=== PATIENT | female | born 1935 ===

== ENCOUNTER 2017-03-14 10:22 | Inpatient (IN) | payer MEDICARE, OTHER ==
[~2017-03-14] VITALS: Ht 163.8 cm; Wt 60.8 kg
[2017-03-14 12:44] VITALS: PULSE 90
[2017-03-14] MEDS ORDERED: Alum-Mag Hydrox-Simeth 30 mL Suspension PO PRN (12:45)
[2017-03-14] MEDS ORDERED: Ondansetron 2 mg/mL 2 mL Inj IVPUSH PRN (12:45)
[2017-03-14] MEDS ORDERED: Polyethylene Glycol (PEG) 17 Gm Powder PO PRN (12:45)
[2017-03-14 12:46] VITALS: BP 107/56; PULSE 93; RESP 18; O2SAT 93
--- NOTE | 2017-03-14 12:54 | PCM.HPMED ---
Subjective Date of Service March 14, 2017 Primary Provider: Admitting Physician: Oliver White Primary Care Physician: Mervat Attending Physician: Oliver White Chief Complaint: Fell leaving lunch 03/13 at [facility] on [facility] History of Present Illness: Pratibha 81-year-old woman who moved from [place] 2 months ago. Animated, has falls not irregularly she stumbles quite regularly and is supposed to be using using a walker but does not use it very often. There were no extra symptoms when she felt was a simple stumble and fall abdomen severe hip pain on the right and found to have a right femoral hip fracture. She was originally going to have surgery 03/12 in the evening then there was a delay because of antibodies in her blood. Then the plan was to have surgery 03/14 this morning but overnight she decompensated and became acutely hypoxemic and had altered level of consciousness at which point in time further workup was obtained and the decision not to operate this morning was made and to send her to a larger hospital with better resources in the event that her condition further deteriorated. Review of Systems: Gen.: No fevers chills weight loss weight gain Eyes: no visual disturbances or blurring vision HEENT: No nose/throat drainage, no pain in ears or throat, no hearing loss Lymph: No lymph nodes noted Cardiac: No chest pain, orthopnea, PND, palpitations , pedal edema or dyspnea on exertion Pulmonary: no cough, wheezing or bringing up of sputum GI: No anorexia nausea vomiting blood or black in the stool : no dysuria hematuria urinary frequency or decrease in urine output Musculoskeletal: Joint swelling no joint pain no new muscle aches or back pain Neuro: No syncope, seizures no loss of consciousness no new focal weakness, numbness or tingling Psychiatric: New new anxiety insomnia or depression Endocrine: No new heat or cold intolerances polyuria or polydipsia Hematology: No lymphadenopathy or easy bleeding or bruising noted skin: No new rashes, stasis dermatitis Allergies Coded Allergies: zolpidem (Verified Allergy, Unknown, Hallucinations, 03/14/17) Home Medications Alendronate Celexa 20 mg daily Levoxyl 125 g daily Pantoprazole Trazodone PMH Concurrent chronic continuous tobacco abuse, Question of mitral prolapse not supported by echo just completed Hypothyroidism Hypertension previously on Álvaro but discontinued Hx GERD Insomnia Self-reported emphysema but not on any inhalers. No known surgeries Social patient's lift her whole life in [facility] came to [facility] 12/2016 to be near her children. She has 6 children one of whom of a gunshot a large number of grandchildren. She is living at the [facility] living [facility] on [facility]. She has smoked at least a half a pack a day since she was 27 which is 54 years or 37 pack years. She enjoys at least and nightly glass of wine. Family history no known history of cancer or diabetes Exam Vital Signs BPs quite variable from 98/51-144/50, pulse 91-130, respiratory rate 10-25, O2 97% on 5 L today. Not previously on oxygen. Exam Gen.- A+ O 3 no apparent distress. Eyes- open conjunctiva clear, pupils equal nonicteric Mouth- oral mucosa moist, no exudate ENT- ears normal, nose normal Neck- supple/trach midline CVS- RRR no murmur or gallop Lungs- CTA GI- NABS/NT soft Musc- moving 4 no obvious deformity Neuro- cranial nerves II through XII intact to gross examination, nonfocal Skin- warm and dry, no rashes/lesions/wounds noted Psych- pleasant and appropriate, Lab and Diagnostics Labs Labs here CBC, CMP, total, BMP and type and cross of been ordered. NA 134, K4.8, CL 104, CO2 27, BUN 20, CR 0.9 03/14 LFTs WNL, albumin 2.8 total protein 5.4 03/14 WBC 13.6, Hg 10.8, HCT 31.6 1.6, PLT 192 03/14 Troponin 0.23 normal is up to 0.3 for this test 03/14 ABG pH 7.35, PCO2 50, PO2 60 on 5 L O2 sat was 90% at that point in time 03/14 X-Rays, CTs and MRIs There are reportedly CT of the chest rule out PE that is negative, hip and CXRs I have no results of these, the patient was sent with a CD so hopefully these are online with at least reads or films have been uploaded to the PACs system. 12-lead ECG EKG sinus tachycardia rate 108, QTC 453 ms abnormal R wave progression Q waves in inferior leads being read as old inferior infarct. No acute ST segment depressions or elevations personally reviewed by myself from 03/13/17 evaluated on admission. An additional EKG is pending. Cardiac Echo Impressions Echocardiogram EF 7075 percent, Right ventricular function is "severely impaired" right atria size normal, left atrium normal, thickening of mitral valve leaflets no mitral stenosis, tricuspid valve appears normal, pulmonic valve is normal trace pulmonic regurg, pericardial effusion, no evidence of mural thrombus, no pleural effusion, RVSP 51 mm Hg 03/14 Assessment & Plan 81-year-old female admitted 03/14 after coming to [facility] 03/12 with right hip fracture. My goal is to expedite this patient's procedure. Unless something springs up on her lab work or x-rays that is unexpected at this point in time the recommendation is to proceed to surgery without any additional testing. She may have had some cardiac issues in the past but the echocardiogram looks good other than some pulmonary hypertension, and while she has an extensive smoking history she is not on any inhalers or oxygen chronically and her oxygenation seems better than it was this morning when she got transferred here. Obviously an acute event in an otherwise elderly woman is possible but does not seem to already occurred. Recommend completing procedure performed any further complications occur. R hip fx-checking PTH, supplementing vitamin D and calcium, consult orthopedics Dr. Dago Ayala Acute respiratory failure-checking BNP, repeating chest x-ray getting films downloaded to PAC system and red. Acute metabolic encephalopathy-patient has been receiving Dilaudid, Ativan, and has been hypoxemic she sounds like she got better since this morning we will need to watch COPD/tobacco abuse-patient comes here on Zosyn/Levaquin and think this may be a bit much and going ahead and going to finish a course of Zithromax/Rocephin bronchodilators and incentive spirometry Hx HTN/?? CAD-echo does not suggest anything EKG shows evidence of inferior infarct could be lead placement nothing acute happening. Patient has been on álvaro in the past were holding for now and using when necessary hydralazine Hx GERD-PPI while she is in the hospital she has been on pantoprazole Hx insomnia-trazodone is what she uses at home we will continue this avoids zolpidem as it "makes her crazy" Prophylaxis: DVT, SCDs and anticoagulation per orthopedics, GI PPI while she is here Dispositions: Patient comes from assisted living on [facility] probably wants to return there even to SNF, she is DO NOT RESUSCITATE but understands it is suspended for surgery. VTE Mechanical Devices: Intermittant Pneumatic CD Resuscitation Status: DNR/DNI:Do Not Resuscitate/Intubate Time spent >70min Milton Weaver MD March 14, 2017 12:54
[2017-03-14] MEDS: Lactated Ringer's 1,000 ML IV SCH (12:57)
[2017-03-14 13:24] LABS: BASOPHILS % (AUTO) 0.3 % (0-3); EOSINOPHILS % (AUTO) 2.1 % (0-5); Mean Corpuscular Hemoglobin 30.8 pg (27.0-35.0); Mean Corpuscular Volume 96.8 fL (81-100); NEUTROPHILS % (AUTO) 71.7 % (40-74); Platelet Count 195 bil/L (150-400)
[2017-03-14] MEDS ORDERED: Magnesium Hydroxide 10 mL Oral Concentration PO PRN (13:40)
[2017-03-14] MEDS ORDERED: cefTRIAXone Inj 1,000 MG in Dextrose 5% Minibag Plus 50 ML IV SCH (13:40)
[2017-03-14 13:43] LABS: INR 1.06 ratio
[2017-03-14 13:51] LABS: TROPONIN T 0.032 ug/L (0.0-0.011)
[2017-03-14] MEDS: Calcium Carbonate (Oyster Shell) 500 mg Tablet PO SCH ×2 (14:30→19:54)
[2017-03-14 15:30] VITALS: PULSE 95; RESP 16; O2SAT 93
--- NOTE | 2017-03-14 16:31 | DRSVH ---
PROCEDURE: X-RAY CHEST ONE VIEW, PORTABLE ([id number]) INDICATIONS: pre-op TECHNIQUE: One view of the chest was acquired. COMPARISON: Outside Film, CT, CT ANGIO CHEST, 03/13/2017, 21:05. Outside Film, CR, XR CHEST 1VW, 02/22, 13:46. FINDINGS: Surgical changes and devices: Prior kyphoplasty within the mid thoracic spine. Right axillary surgic al clips.. Lungs and pleura: Diffuse, widespread bilateral interstitial opacities are present and there is been interval increase in patchy airspace opacity within the left lung base. Bibasilar and midlung bronch iectasis redemonstrated. No pneumothorax or large pleural effusions. Mediastinum: Mediastinal contours appear normal. Heart size is normal. Bones and chest wall: No suspicious bony lesions. Overlying soft tissues appear unremarkable. IMPRESSION: 1. Diffuse bilateral interstitial opacities likely chronic as well as bilateral bronchiectasis. Ant mmend clinical correlation to exclude superimposed acute interstitial process. 2. Increasing opacification within the left lung base suspicious for superimposed aspiration or pneum onia. Dictated by: Martínez Gutierrez [facility] Interpreted: Rodrigo Pollock MD on 03/14/2017 at 14:14 Transcribed by: KYLE on 03/14/2017 at 16:31 Approved by: Rodrigo Pollock M.D. on 03/15/2017 at 8:41
--- NOTE | 2017-03-14 17:45 | NUR ---
ADMIT Patient received from [facility]. Patient is alert and oriented but very forgetful. Per her granddaughter patient has Dementia. Per her daughter patient is alert and oriented X 3 at baseline. Per her daughter patient gets more confused at night. Morphine IV administered for complaints of pain. Patient will be started on a heart healthy diet and she will be NPO post midnight in preparation for her surgery tomorrow afternoon. Denies nausea. Received from with O2 at 5 LPM via NC. Sats are in the mid 90's on 5 L. Denies SOB. Skin tear noted on her R elbow and L arm. Cleansed with NS. Mepilex foam applied. IFC intact and draining to boni colored UO. Gregory alarm is on. Oriented to room and call light.
[2017-03-14] MEDS ORDERED: LORA10CA PO (18:31)
[2017-03-14] MEDS ORDERED: BACL10TA PO (18:31)
[2017-03-14] MEDS ORDERED: TRAZ-115 PO (18:31)
[2017-03-14] MEDS ORDERED: DEXT1DRO8 BOTH_EYES (18:31)
[2017-03-14] MEDS ORDERED: CALC-72 PO (18:31)
[2017-03-14] MEDS ORDERED: PANT20TA2 PO (18:31)
[2017-03-14] MEDS ORDERED: ALEN70TA2 PO (18:31)
[2017-03-14] MEDS ORDERED: ACET1TAB12 PO (18:31)
[2017-03-14] MEDS ORDERED: LEVO125T6 PO (18:31)
[2017-03-14] MEDS ORDERED: CITA20TA PO (18:31)
--- NOTE | 2017-03-14 18:36 | DRSVH ---
PROCEDURE: CT ANGIO CHEST PULMONARY EMBOLISM ([id number]) INDICATIONS: hypoxemia r/o pe RV strain TECHNIQUE: After the administration of intravenous contrast, 2 mm thick sections acquired from the pulmonary api dorcas to the posterior costophrenic angles. 3-dimensional maximum intensity projection (MIP) coronal a nd sagittal reformats were then acquired through the thorax. For radiation dose reduction, the follo wing was used: automated exposure control, adjustment of mA and/or kV according to patient size. COMPARISON: Outside Film, CT, CT ANGIO CHEST, 03/13/2017, 21:05. FINDINGS: Image quality: Excellent. Pulmonary arteries: Pulmonary arteries are enlarged, as before. There is presumed artifactual low den sity within the left upper lobe pulmonary artery secondary to beam hardening artifact resulting from a left-sided superior vena cava. Otherwise, no evidence of pulmonary embolus. Lungs and pleura: Trace right and small left pleural effusions are present. No pneumothoraces. Modera te patchy airspace opacity within the right upper lobe anteriorly is present, as before. Moderate air space opacity within the left lung base posteriorly is present. Moderate emphysema with apical predom inance is present. Mild patchy airspace opacity within the left upper lobe posteriorly.. Central and peripheral airways are patent. Mediastinum: Heart size is normal, without pericardial effusion. There is a 43 mm diameter lobular soft tissue density focus within the anterior mediastinum, as before. No hilar adenopathy. Thoracic aorta is normal in caliber and enhancement. Esophagus is normal in caliber, without hiatal hernia. Bones and chest wall: No suspicious bony lesions. No change in severe T12 compression fracture. Bony cement injection at T8. Moderate T8 compression, which is chronic. Ribs and thoracic spine appear o therwise intact throughout. Thyroid gland is not seen. No axillary or supraclavicular adenopathy. Abdomen: Visualized upper abdominal solid organs appear normal in the early arterial phase of enhanc ement. IMPRESSION: 1. No significant change compared to ..17 at 2100 hrs. 2. No pulmonary embolus. 3. Superior vena cava duplication. 4. Multifocal pneumonia with small left greater than right pleural effusions are unchanged. 5. 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 Dictated by: Brady Gómez M.D. on 03/14/2017 at 18:28 Approved by: Brady Gómez M.D. on 03/14/2017 at 18:35
[2017-03-14] MEDS: HYDROcodone-APAP 5-325 mg Tablet PO PRN (18:38)
[2017-03-14] MEDS: Famotidine Inj 20 MG in IV Premix 1 EACH IV SCH (19:53)
[2017-03-14 20:00] VITALS: PULSE 97
[2017-03-14 20:03] VITALS: BP 130/86; PULSE 96; RESP 19; O2SAT 95
--- NOTE | 2017-03-14 21:33 | CONS ---
[address] [address] CONSULTATION REPORT PATIENT: KRAIG KANG : 1935 MR#: [id number] ADMIT: 03/14/2017 JOB ID: [id number] DATE OF SERVICE: 03/14/2017 CHIEF COMPLAINT: Right hip pain. HISTORY OF PRESENT ILLNESS: The patient is an 81-year-old female who fell while at [facility] on [facility] on Tuesday evening, sustaining a right femoral neck fracture. She was unable to ambulate after the fall. She normally ambulates with a walker although her daughter states that she can be quite impulsive. She had immediate onset of pain and was able to ambulate after the fall. She was initially taken to [facility] and they initially planned for surgery. However, they had some difficulty due to antibodies and unable to get blood and then she had a hypoxic event and was thought to perhaps have aspirated and was transferred to [facility]. Her oxygen saturation remains somewhat low, at about 93% on 5 L, and therefore she had additional workup including a repeat CT scan to rule out PE and started on antibiotics for presumed aspiration pneumonia. PAST MEDICAL HISTORY: Significant for hypothyroid, hypertension, gastroesophageal reflux disease, insomnia, and self-reported COPD. ALLERGIES: ZOLPIDEM causes hallucinations. PHYSICAL EXAMINATION: Blood pressure 107/56, pulse rate 93, temperature 37.8, respirations 18, pulse rate 93. O2 sat 93 on 5 L. General: Alert and cooperative, in no acute distress. Somewhat confused. Right hip skin is intact. She has pain with any range of motion of the right lower extremity. Her right lower extremity is shortened and externally rotated. She is able to move her toes. Her foot is warm, pink, and well perfused. X-rays demonstrate a right displaced femoral neck fracture. ASSESSMENT: Right displaced femoral neck fracture. PLAN: We discussed treatment options with the patient as well as her daughter via telephone and I recommended a hip hemiarthroplasty as soon as possible. I had scheduled her for surgery today. However, her surgery was postponed due to needing to get the repeat CT scan and to allow time on antibiotics and hopefully improve her respiratory status. I discussed hip hemiarthroplasty with the patient's daughter. Discussed the risks, benefits, and possible complications of surgery. All questions were answered and she wished to proceed. We will plan for surgery tomorrow.
[2017-03-14 23:56] VITALS: BP 126/73; PULSE 99; RESP 20; O2SAT 96
[2017-03-15] VITALS (11 sets, daily range): BP systolic 124–171; BP diastolic 78–98; PULSE 93–113; RESP 16–22; O2SAT 91–98
[2017-03-15] MEDS: Lactated Ringer's 1,000 ML IV SCH ×2 (00:33→08:57)
[2017-03-15] MEDS: Piperacillin-Tazo 3.375 Gm Inj 3.375 GM in Dextrose 5% Minibag Plus 50 ML IV SCH ×5 (00:39→20:15)
[2017-03-15] MEDS: HYDROcodone-APAP 5-325 mg Tablet PO PRN (01:48)
--- NOTE | 2017-03-15 03:31 | NUR ---
Activity/Pain Pt bedrest all shift, reports pain 7-8/10, administered morphine IV and Pt was able to sleep. Later when asking Pt her pain, she just stared and said "I don't know, a 10 maybe." PRN vicodin given. Pt tolerated and is sleeping. Pt is alert but very forgetful. Pt is NPO for surgery with IV fluids infusing.
--- NOTE | 2017-03-15 06:41 | PCM.HPANE ---
Patient Data Surgeon Admitting Provider:Oliver White Attending Provider:Oliver White Primary Care Physician:Nopcp Other Provider: Reason for Visit Right Hip Fracture/Pna Ht/WT & BMI Height (Feet): 5 Height (Inches): 4.50 Weight (Kilograms): 62.300 Body Mass Index 23.13 Allergies Coded Allergies: zolpidem (Verified Allergy, Unknown, Hallucinations, 03/14/17) Past Anesthesia History Anesthesia History: Denies:: Abnormal Airway, Anesthesia Reactions, Difficult Intubation, Fam Anesthesia Reaction, Fam Malignant Hypertherm, Malignant Hyperthermia Diabetes History Hx Diabetes?: No MRSA MRSA: No Medications Reported Medications Acetaminophen/Codeine 300-30mg (Tylenol/Codeine #3)1 Each Tablet1 Tablet PO Q4H PRN Pain Ref 0 03/14/17 Dextran 70/Hypromellose/Pf (Artificial Tears Drops)1 Each Droperette2 Drop BOTH_ EYES q4 hours PRN dry eyes #1 BOTTLE 03/14/17 Loratadine (Claritin)10 Mg Hnankse26 Mg PO DAILY PRN allergies Ref 0 03/14/17 Baclofen 10 Mg Fmootp57 Mg PO BID PRN For Spasm Ref 0 03/14/17 Trazodone 50 Mg Cpekty13 Mg PO HS Ref 0 03/14/17 Citalopram Hydrobromide (Celexa)20 Mg Ahwqof25 Mg PO DAILY Ref 0 03/14/17 Calcium Carbonate/Vitamin D3 (Calcium 500 + Vit D 200 Tablet)1 Each Tablet1 Each PO DAILY 03/14/[address] 20 Mg Tablet.dr20 Mg PO DAILY Ref 0 03/14/17 Levothyroxine 125 Mcg Kmmtsi682 Mcg PO DAILY For Thyroid Replacement Ref 0 03/14/17 Alendronate Sodium (Fosamax)70 Mg Ovxamc97 Mg PO WEEKLY 30 Days Ref 0 03/14/17 History History of ENT Problems?: No HEENT History: Denies:: Abnormal Airway Cataracts Difficult Intubation Dysphagia Glaucoma Hearing Problem Sinus Problem TMJ Denture Type: Full- Upper Full- Lower Teeth Condition: Within Normal Limits Hx of Heart Problems?: Yes Cardiovascular History: Positive for:: Hypertension Denies:: Cardiac Surgery Chest Pain (DENIES CHEST PAIN AT THIS TIME.) Congestive Heart Failure Edema Heart Murmur Irregular Heartbeat Pacemaker Thrombophlebitis Other Cardiac History: HX: MITRAL VALVE PROPLAPSE Hx of Respiratory Problem?: Yes Respiratory History: Positive for:: Emphysema Denies:: Asthma COPD Chest Surgery Cough Dyspnea Hemoptysis Oxygen Administration Pneumonia Pulmonary Embolism Tuberculosis Use of C-PAP Machine Use of Inhalers / NEBS Hx Neurologic Problems?: No Neurological History: Positive for:: Dementia Denies:: Alzheimer's Disease CVA Dizziness Headaches Multiple Sclerosis Parkinson's Disease Peripheral Neuropathy Seizures TIA Hx of GI Problems?: Yes Gastrointestinal History: Denies:: Cirrhosis Diverticulitis Gall Bladder Disease Gastroesphageal Reflux Gastrointestinal Bleeding Heartburn Hepatitis Hiatal Hernia Liver Disease Rectal Bleeding Hx of Problems?: No Genitourinary History: Denies:: HX of Hemodialysis Kidney Stones Urinary Tract Infection HX of Peritoneal Dialysis: No Female Hx: Denies:: Currently Endometriosis Pelvic Inflammatory Problems with Breasts? Skin History: Denies:: History Skin Disorders? Pressure Ulcers Hx Musculoskeletal Problems?: No Musculoskeletal History: Positive for:: Back Injury Osteoarthritis Denies:: Degenerative Joint Fibromyalgia Joint Replacement Musculoskeletal Trauma Myasthenia Gravis Rheumatoid Arthritis Systemic Lupus Hx of Psycho/Social Problems?: Yes Psycho Social History: Positive for:: Hx Depression (ON CITALOPRAM) Denies:: Anxiety Bipolar Disorder Suicide Attempt Hx Surgeries?: Yes (R MASTECTOMY) Hx Any Other Health Problems?: Yes Other History: Positive for:: Cancer (BREAST CA) Hospitalization (FRACTURE) Thyroid Disease (HYPOTHYROID) History Blood Transfusions: Positive for:: Accept Blood Products? Denies:: Blood Transfusions Hx Diabetes: No Other Pertinent History: HX: INSOMNIA Hx Substance Use: NoHave You Smoked inLast 12 mo: YesApprox How Many Cigarettes/day: 1/2 PPD SINCE AGE 27. Stop/Bang Treated for Sleep Apnea?: No Do You Have a CPAP Machine?: No S-Snoring: Do You Snore Loudly: No T-Tired: feel tired, fatigued: No O-Obsered: Observed not breath: No P-Blood Pressure: treated: No B- Body Mass Index > 35 kg/m2: No A- Age over 50: Yes N- Neck Large Circumference: No G- Gender Male: No KRISTIE Total Score: 0 Risk Assessment Category Category 1A: Patient has history of documented sleep apnea, and HAS NOT received any narcotic, sedative or anesthesia administration during this stay. Category 1B: Patient has history of documented sleep apnea, and HAS received any narcotic , sedative or anesthesia administration during this stay Category 2: Patient has SUSPECTED Obstructive Sleep Apnea, and HAS received any narcotic , sedative or anesthesia administration during this stay. Category 3: Patient has SUSPECTED Obstructive Sleep Apnea and HAS NOT received narcotic, sedative or anesthesia administration during this stay. Category 4: Outpatient in Procedural Areas with known sleep apnea or who screen positive for High Risk via the STOP/BANG questionnaire. Exam Exam Vital Signs Vital Signs Date Time Temp Pulse Resp B/P Pulse Ox O2 Delivery O2 Flow Rate FiO2 03/15/17 05:28 36.7 95 20 131/78 93 Nasal Cannula 5.00 03/14/17 23:56 36.8 99 20 126/73 96 Nasal Cannula 5.00 General Appearance: Alert, Cooperative, Moderate Distress (Right hip pain) HEENT/AIRWAY: MP 2, Neck Movement (FROM), Mouth Opening (3 FBMO) Lungs: Diminished, Coarse Heart: Regular Rate/Rhythm Meds/Labs/Diagnostics Admission Meds Current Medications Lactated Ringer's 1,000 ml @ 100 mls/hr Q10H IV Last administered on 00:33; Start 03/14/17 at 12:43 Famotidine/Sodium Chloride/Premix (Pepcid Inj/IV Premix) 50 ml @ 100 mls/hr Q12 IV Last administered on 03/14/17 19:53; Start 03/14/17 at 20:30 Lactobacillus Acidophilus 2 tablet 2 tablet PCHS PO Last administered on 18:38; Start 03/14/17 at 18:00 Ceftriaxone Sodium/Dextrose/ Water (Rocephin Inj/ D5W Minibag Plus) 50 ml @ 100 mls/hr Q24H IV Last administered on 03/14/17 15:42; Start 03/14/17 at 13: 40; Stop 03/14/17 at 16:45; Status DC Calcium Carbonate 500 mg 500 mg TID PO Last administered on 03/14/17 19:54; Start 03/14/17 at 14:30 Piperacillin Sod/ Tazobactam Sod/ Dextrose/Water (Zosyn 3.375 Gm Inj/D5W Minibag Plus) 50 ml @ 12.5 mls/hr Q8 IV Last administered on 03/15/17 00:39; Start 03/15/17 at 00:30 Labs Test 03/14/17 13:15 03/14/17 15:00 White Blood Count 11.0th/mm3 (3.8-10.1) Red Blood Count 3.44mil/mm3 (3.90-5.20) Hemoglobin 10.6g/dL (12.0-15.6) Hematocrit 33.3% (35.0-46.0) Mean Corpuscular Volume 96.8fL (81-100) Mean Corpuscular Hemoglobin 30.8pg (27.0-35.0) Mean Corpuscular Hemoglobin Concent 31.8% (32.0-37.0) Red Cell Distribution Width 13.4% (12.3-15.4) Platelet Count 195bil/L (150-400) Neutrophils (%) (Auto) 71.7% (40-74) Lymphocytes (%) (Auto) 14.7% (14-46) Monocytes (%) (Auto) 11.0% (4-12) Eosinophils (%) (Auto) 2.1% (0-5) Basophils (%) (Auto) 0.3% (0-3) Prothrombin Time 11.4sec (8.1-12.5) Prothromb Time International Ratio 1.06ratio Activated Partial Thromboplast Time 28.7sec (22.8-33.0) Sodium Level 137mEq/L (134-144) Potassium Level 4.5mEq/L (3.5-5.2) Chloride Level 104mEq/L (97-108) Carbon Dioxide Level 23mmol/L (18-29) Blood Urea Nitrogen 16mg/dL (8-27) Creatinine 0.68mg/dL (0.57-1.00) Estimat Glomerular Filtration Rate 119mL/min (>59) Glucose Level 98mg/dL (60-99) Calcium Level 8.3mg/dL (8.5-10.1) Total Bilirubin 0.5mg/dL (0.0-1.2) Aspartate Amino Transf (AST/SGOT) 17U/L (0-50) Alanine Aminotransferase (ALT/SGPT) 12U/L (0-32) Alkaline Phosphatase 54U/L (25-165) Troponin T 0.032ug/L (0.0-0.011) Pro-B-Type Natriuretic Peptide 5169pg/mL (0-738) Total Protein 5.2g/dL (6.4-8.4) Albumin 2.8g/dL (3.4-5.0) Parathyroid Hormone (Intact) 59pg/mL (15-65) Plan Impression Patient chart reviewed, patient interviewed and anesthestic plan with risks, benefits, and alternatives discussed, and informed consent obtained. NPO per Anesth. Guidelines: Yes ASA Physical Status: ASA3 Severe Disease (COPD) Anesthetic Plan: SAB (risks of spinal including bleeding, spinal cord infection , nerve damage, dysfunction, low blood pressure discussed. AQA. Consent signed by daughter.) Bene/Risks/Altern/Consents: Yes HP Complete Prior to Induction: Yes Other care tramsferred Mauro Jimenez MD March 15, 2017 06:41 Adonay Mendeita MD March 15, 2017 18:32
[2017-03-15] MEDS: Pantoprazole 40 mg ER24 Tablet PO SCH (07:30)
[2017-03-15] MEDS: Calcium Carbonate (Oyster Shell) 500 mg Tablet PO SCH ×3 (08:30→20:30)
[2017-03-15] MEDS: Polyethylene Glycol (PEG) 17 Gm Powder PO SCH (08:30)
[2017-03-15] MEDS: Famotidine Inj 20 MG in IV Premix 1 EACH IV SCH ×2 (08:56→21:30)
[2017-03-15] MEDS ORDERED: Glycopyrrolate 0.2 MG/ML 1mL Inj ONE (10:50)
[2017-03-15] MEDS ORDERED: fentaNYL-PF 50 mCg/mL 2 mL Inj ONE (10:50)
[2017-03-15] MEDS ORDERED: Propofol 10,000 mCg/mL 20 mL Inj ONE (10:50)
[2017-03-15] MEDS ORDERED: Ketamine 10 mg/mL 20 mL Inj ONE (10:50)
[2017-03-15] MEDS ORDERED: Phenylephrine/NS-PF 100 mCg/mL 5 mL Syringe IVPUSH ONE (10:50)
--- NOTE | 2017-03-15 11:30 | NUR ---
Care meeting Small care meeting happened in the room ~1130 between Louis (survey project manager of [employer]), myself, and primary nurses Shai Valle and Wendy Martinez with granddaughter and pt present. Granddaughter expressed frustration regarding her grandmas surgery getting pushed back to 1700 however right before the meeting Dr. Ayala came down and spoke with pt and granddaughter. It was relayed to the care team that Dr. Ayala would be changing her surgery time to 1500. Granddaughter also expressed frustration with the turning schedule of the pt which we discussed will happen Q2 hours to avoid skin breakdown. Also discussed pain management after surgery and possible delirium that could occur after surgery. Granddaughter states she understands as she is a RN. Care conts. HVAC MANAGER Tanya also aware of plan.
--- NOTE | 2017-03-15 13:17 | NUR ---
awaiting ortho orders post op
--- NOTE | 2017-03-15 13:22 | PCM.PNMED ---
Subjective Date of Service March 15, 2017 Subjective Pain in hip. Denies chest pain, dyspnea, nausea vomiting. Has been very confused overnight but woke up a little bit clear. Obviously has no recollection of who I am or ever meeting me prior to today. Exam Vital Signs Vital Sign - Last Date Time Temp Pulse Resp B/P Pulse Ox O2 Delivery O2 Flow Rate FiO2 03/15/17 11:48 36.4 95 16 171/83 96 Nasal Cannula 5.00 Intake and Output 03/14/17 03/14/17 03/15/17 Cumulative From/Thru 14:59 22:59 06:59 03/14/17 12:35 - 03/15/17 06:03 Intake Total 300 ml 1400 ml 1700 ml Output Total 750 ml 1350 ml 2100 ml Balance -450 ml 50 ml -400 ml Intake Oral 300 ml 200 ml 500 ml IV Total 1200 ml 1200 ml Output Urine Total 750 ml 1350 ml 2100 ml # Bowel Movements 0 0 0 Exam Gen.- A+ O 1, confused no apparent distress. Eyes- open conjunctiva clear, pupils equal nonicteric ENT- ears normal, nose normal Neck- supple/trach midline CVS- RRR no murmur or gallop Lungs- CTA, perhaps some crackles towards the bases really minimal GI- NABS/NT soft Musc- moving 4 no obvious deformity Neuro- cranial nerves II through XII intact to gross examination, nonfocal Skin- warm and dry, no rashes/lesions/wounds noted Psych-pleasantly confused Lab and Diagnostics Result Diagram: 03/14/17 1315 03/14/17 1315 X-Rays, CTs and MRIs CTA chest IMPRESSION: 1. No significant change compared to 03.13.17 at 2100 hrs. 2. No pulmonary embolus. 3. Superior vena cava duplication. 4. Multifocal pneumonia with small left greater than right pleural effusions are unchanged. 5. 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 Dictated by: Brady Gómez M.D. on 03/14/2017 at 18:[address] of the chest rule out PE that is negative, hip and CXRs I have no results of these, the patient was sent with a CD so hopefully these are online with at least reads or films have been uploaded to the PACs system. These were reviewed with the radiologist, it was felt that PE could not be ruled definitively out based on the study that was obtained from [facility]. Therefore the study was repeated here. . 12-lead ECG EKG sinus tachycardia rate 108, QTC 453 ms abnormal R wave progression Q waves in inferior leads being read as old inferior infarct. No acute ST segment depressions or elevations personally reviewed by myself from 03/13/17 evaluated on admission. An additional EKG is pending. Cardiac Echo Impressions Echocardiogram EF 7075 percent, Right ventricular function is "severely impaired" right atria size normal, left atrium normal, thickening of mitral valve leaflets no mitral stenosis, tricuspid valve appears normal, pulmonic valve is normal trace pulmonic regurg, pericardial effusion, no evidence of mural thrombus, no pleural effusion, RVSP 51 mm Hg 03/14 Assessment & Plan 81-year-old female admitted 03/14 [address] [facility] 03/12 with right hip fracture. 03/[address] scan shows multifocal pneumonia no PE patient's oxygen needs are down to 3 L my understanding is planned to go to the OR at 2:00 today I see no indication not to. Acute respiratory fail 2' multifocal pneumonia no PE/COPD/tobacco abuse. Likely aspiration event patient was vomiting and has large hiatal hernia 03/13 late which is the likely etiology of her sudden decline. -Received Zosyn/Levaquin 03/[address] [facility], I have pared down to Zosyn/Zithromax - - bronchodilators and incentive spirometry R hip fx- PTH wnl 03/14, supplementing vitamin D and calcium, consult orthopedics Dr. Dago Ayala Acute metabolic encephalopathy/dementia-patient has been receiving Dilaudid, Ativan, and has been hypoxemic she sounds like she got better since this morning we will need to watch Hx HTN/?? CAD-echo does not suggest anything EKG shows evidence of inferior infarct could be lead placement nothing acute happening. Patient has been on srinivas in the past were holding for now and using when necessary hydralazine Hx GERD-PPI while she is in the hospital she has been on pantoprazole Hx insomnia-trazodone is what she uses at home we will continue this avoids zolpidem as it "makes her crazy" Prophylaxis: DVT, SCDs and anticoagulation per orthopedics, GI PPI while she is here Dispositions: Patient comes from assisted living on [facility] probably wants to return there even to SNF, she is DO NOT RESUSCITATE but understands it is suspended for surgery. VTE Mechanical Devices: Intermittant Pneumatic CD Resuscitation Status: DNR/DNI:Do Not Resuscitate/Intubate Milton Weaver MD March 15, 2017 13:21
[2017-03-15 13:56] LABS: BASOPHILS % (AUTO) 0.6 % (0-3); EOSINOPHILS % (AUTO) 1.9 % (0-5); MONOCYTES % (AUTO) 11.2 % (4-12); Mean Corpuscular Hemoglobin 31.1 pg (27.0-35.0); Mean Corpuscular Volume 92.8 fL (81-100); NEUTROPHILS % (AUTO) 69.2 % (40-74); Platelet Count 248 bil/L (150-400)
--- NOTE | 2017-03-15 14:04 | NUR ---
Faxed referral to [facility] per TUMBLER OPERATOR. Addendum: 03/15/17 at 1624 by NESS JOSHI CM Followed up with Saeid De Paz in admissions to confirm fax and referral received.
[2017-03-15 14:25] LABS: APPEARANCE,URINE CLEAR (CLEAR,HAZY); COLOR,URINE STRAW (YELLOW); PH,URINE 7.5 (5.0-8.0)
[2017-03-15 14:26] LABS: OCCULT BLOOD,URINE NEGATIVE (NEGATIVE); UROBILINOGEN,URINE NORMAL (NORMAL)
--- NOTE | 2017-03-15 14:31 | NUR ---
Patient Care Patient's granddaughter is doing complete care for patient including oral care, Q2 hour turning, bathing, catheter care, and emptying patients catheter. Instructed patient's family to let staff know so the staff can assist with turning for patient and family safety and so we can keep record of intake and output. Patient's family verbally expresses understanding. Hourly rounding continues. Assessing pain and patient's comfort upon each hourly check. Updating white boards, patient, and family with plan of care.
--- NOTE | 2017-03-15 14:37 | NUR ---
Social Work-initial assessment: Data:See initial assessment. Pt is a 81 y/o female who was admitted on 03/14/17 for right hip fracture per H&P. Pt's insurance is [employer] and [facility] and PCP is Dr. Wilbert Blackwell MD. EMR reviewed. Pt's readmission score is 2. SEJAL met with pt at bedside, SW role explained. Pt states she is forgetful sometimes and asked SW to call her daughter. SEJAL spoke with daughter Familia [phone] to discuss discharge planning, SW role explained. Daughter states pt has been living at [facility] on [facility]. Pt uses a fww to ambulate and does not drive. Pt had HH and SNF experience when she lives in [place]. SW discussed DPOA/advanced directive, daughter confirms this has been completed, SW requested copy to be brought in. PT has no assisted care insurance or VA benefits. Pt to go to the OR today and work with PT tomorrow. MD order received for SNF placement. SEJAL discussed SNF with daughter, SNF choice list provided. Daughter would like a referral to [facility]. SEJAL asked UR specialist to fax referral. SW provided phone number and plan on white board in room. Paperwork and PASRR placed in the chart. SW will continue to follow. Assessment:pt who would benefit from SNF. Plan:Referral has been faxed to [facility]. Paperwork and PASRR placed in the chart. SW will continue to follow. RUPESH Pereira Addendum: 03/15/17 at 1441 by PIO LAM Amended: Links added.
--- NOTE | 2017-03-15 15:00 | NUR ---
Surg update Spoke with Charge nurse Marti in surgery regarding sug time. She states surgery on previous pt is running behind and they will try to pre op her at 1600. Granddaughter updated with this info.
--- NOTE | 2017-03-15 15:01 | NUR ---
Respiratory Patient denies shortness of breath and cough during shift. Supplemental oxygen being administered via nasal canula at 3L with a CPO2 and O2 sats maintaining in mid 90s. Lung sounds were slightly decreased and a little coarse bilaterally this AM. Continuing to monitor for oxygen requirements and encouraging coughing and deep breathing. Granddaughter at bedside emphasizing deep breathing. Addendum: 03/15/17 at 1658 by FAREED BOGGS RN Patient developed slight fever during shift. Encouraged patient to cough and deep breath while in bed despite discomfort. Incentive Spirometer at bedside and encouraged patient to use while awake. Addendum: 03/15/17 at 1830 by FAREED BOGGS RN Please ignore information about fever, wrong patient.
--- NOTE | 2017-03-15 16:00 | NUR ---
Repositioning/Pain Mgmt Met patient and granddaughter in room around 0715 during safety check at beginning of shift went over plan of care for the day including repositioning and pain mgmt. Patient was turned and repositioned every 2-3 hrs, heels elevated. Medicated with IV morphine x2 during shift. Patient's granddaughter was assisting and providing a lot of direct care. Multiple staff members were in and out of room to check on patient prior to her going up to OR for surgery.
--- NOTE | 2017-03-15 16:15 | NUR ---
Surg update Called up to surg for update. Surgery running behind. States they will try and preop her between [phone]. Granddaughter and pt informed. Care conts.
--- NOTE | 2017-03-15 16:49 | NUR ---
To OR Patient to OR at 1648 in bed on 3L O2, SCDs on, IV saline locked, and telemetry taken off and telegraph operator notified. Patient's granddaughter followed to OR.
--- NOTE | 2017-03-15 17:24 | NUR ---
pt was refusing to let the nurse and i turn her or move her in anyway she stated it was torture, we informed the pt why it is important to not be left on her back all the time, to help prevent bed sores and she said there was no way we were gong to turn her. and no pillows under her unless it was her knee. Addendum: 03/15/17 at 1727 by NEFTALI SANTOS CNA Amended: Links added.
--- NOTE | 2017-03-15 17:28 | NUR ---
I came into patients room at about 8:45 am to offer bed bath and linen change and to do oral care with pt but the granddaughter had already taken care of personal care needs and she asked for a fresh gown. I did get the pt in a new gown and changed the top sheet and blanket, the pt was in too much pain and refused to roll far enough to change bottom linen. I went to check her cath bag at beginning of shift to empty it there was very little out put since last empty so I came back around 11 am to check again and at that time the granddaughter of pt had already emptied the cath bag. The granddaughter stated that since she is here she can provide care for her grandmother I informed the patients granddaughter that I am very happy to assist with any care and if she has any questions or concerns to please push call light and the nurse or I would be in right away. During the entire shift the pt did not call or use call light for assistance, and the granddaughter did not use call light at anytime. Between the nurse and the orientating nurse on shift and orientating WINSTON Wallace and Hiral we did consistent rounds every 30 to 40 min in her room to make sure all her needs were met, and to turn her as necessary. Addendum: 03/15/17 at 1744 by NEFTALI SANTOS CNA Amended: Links added.
[2017-03-15] MEDS ORDERED: Lactated Ringer's 1,000 ML IV ONE ×2 (18:22→19:00)
[2017-03-15] MEDS ORDERED: Bupivacaine Liposome 1.3% 20 mL Inj INFILTRATE ONE ×2 (18:28→18:29)
[2017-03-15] MEDS ORDERED: Bupivacaine Liposome 1.3% 20 mL Inj ONE (18:29)
[2017-03-15] MEDS ORDERED: Lactated Ringer's 500 ML IV PRN (18:32)
[2017-03-15] MEDS ORDERED: Lactated Ringer's 1,000 ML IV SCH (18:32)
[2017-03-15] MEDS ORDERED: Ondansetron 2 mg/mL 2 mL Inj IVPUSH PRN ×2 (18:35→19:45)
[2017-03-15] MEDS ORDERED: Atropine 0.4 mg/mL Inj IVPUSH PRN (18:35)
[2017-03-15] MEDS ORDERED: Phenylephrine 10,000 mCg/mL Inj IVPUSH PRN (18:35)
[2017-03-15] MEDS ORDERED: fentaNYL-PF 50 mCg/mL 2 mL Inj IVPUSH PRN (18:35)
[2017-03-15] MEDS ORDERED: EPHEDrine Sulfate 50 mg/mL Inj IVPUSH PRN (18:35)
[2017-03-15] MEDS ORDERED: Labetalol 5 mg/mL 4 mL Inj IV PRN (18:35)
[2017-03-15] MEDS ORDERED: Bupivacaine-MPF 0.25% 30 mL Inj INFILTRATE ONE (18:37)
--- NOTE | 2017-03-15 18:50 | NUR ---
During to day I never saw or got a message on voice anand for a call light on. When I did go into the room to take v.s., would look at the cath bag and it was empty already. Addendum: 03/15/17 at 1855 by LUKE ECHAVARRIA CNA Amended: Links added.
--- NOTE | 2017-03-15 18:55 | NUR ---
Today I made sure to check in with pt and her granddaughter very frequently with my orientating WINSTON to make sure all her needs were met. When I made my rounds there was only a couple times that when I asked them can I get anything for you that they asked for anything to help with care or needs. [facility] came to take pt to surgery at 1645 before I could empty her cath bag the granddaughter emptied it.pt is still in surgery as of now. Addendum: 03/15/17 at 1913 by NEFTALI SANTOS CNA Amended: Links added.
--- NOTE | 2017-03-15 19:11 | NUR ---
When we went to take Q4 vitals and empty cath bag. Tech's were already in room to take pt to surgery and we were told we did not have to do her vitals, and granddaughter had already emptied her cath bag. Addendum: 03/15/17 at 1913 by NEFTALI SANTOS CNA Amended: Links added.
[2017-03-15] MEDS ORDERED: HYDROcodone-APAP 5-325 mg Tablet PO PRN (19:45)
[2017-03-15] MEDS ORDERED: Magnesium Hydroxide 10 mL Oral Concentration PO PRN (19:45)
[2017-03-15] MEDS ORDERED: hydrOXYzine Pamoate 25 mg Capsule PO PRN (19:45)
[2017-03-15] MEDS ORDERED: diphenhydrAMINE 25 mg Capsule PO PRN (19:45)
[2017-03-15] MEDS ORDERED: HYDROmorphone 2 mg/mL Inj IVPUSH PRN (19:45)
[2017-03-15] MEDS ORDERED: 0.9% Sodium Chloride 1,000 ML IV SCH (19:45)
[2017-03-15] MEDS ORDERED: Acetaminophen IV 1,000 MG in IV Premix 1 EACH IV PRN (19:45)
[2017-03-15] MEDS: Senna-Docusate 8.6-50 mg Tablet PO SCH (20:30)
--- NOTE | 2017-03-15 20:52 | DRSVH ---
PROCEDURE: X-RAY PELVIS W/LAT HIP (RT) ([id number]) INDICATIONS: post op TECHNIQUE: AP pelvis and lateral view of the right hip acquired. COMPARISON: Outside Film, CR, XR PELVIS W LATERAL HIP RT, 03/12/2017, 13:23. FINDINGS: Bones: Patient is status post right hip bipolar arthroplasty, with hardware components in expected p ositions. The hip joint appears congruent. Osteopenia. Left hip degenerative change. Soft tissues: Overlying postoperative changes are noted. No suspicious soft tissue densities. IMPRESSION: Right hip bipolar arthroplasty. Osteopenia. Dictated by: Tyler Sewell M.D. on 03/15/2017 at 20:44 Approved by: Tyler Sewell M.D. on 03/15/2017 at 20:45
--- NOTE | 2017-03-15 20:53 | OP ---
[address] [address] OPERATIVE REPORT PATIENT: KRAIG KANG : 1935 MR#: [id number] ADMIT: 03/14/2017 JOB ID: [id number] DATE OF SURGERY: 03/15/2017 PREOPERATIVE DIAGNOSIS(ES): Right femoral neck fracture. POSTOPERATIVE DIAGNOSIS(ES): Right femoral neck fracture. PROCEDURE: Right hip hemiarthroplasty with greater trochanter repair of greater trochanter fracture. SURGEON: Adonay Ayala D.O. TOOL CHECKER: Silvina Andre PA-C. INDICATIONS: The patient is an 81-year-old female who fell at her assisted facility on [facility] on Tuesday. Surgery was delayed and then the patient had a hypoxic event and was ultimately transferred to [facility] for further evaluation and treatment. She had a CT scan to rule out PE and was found to have a pneumonia. She was started on IV antibiotics and her respiratory condition has improved today to the point were we felt it was relatively safe to proceed the surgery. We discussed the risks, benefits, and possible complications with the patient and her family. All questions were answered and they wished to proceed. A printing bindery assistant was required for the successful completion of this procedure. PROCEDURE IN DETAIL: The patient was brought to the operating room. She was given a preoperative antibiotic with Ancef as well as her Zosyn which she has been receiving for pneumonia. Placed comfortably into the right lateral decubitus position. The right hip was sterilely prepped and draped. An incision was made centered over the greater trochanter in line with the femur. Dissection was carefully carried through subcutaneous tissue. The iliotibial band was incised in line with the skin incision and the Charnley retractor was then placed. A split was then made in the gluteus medius between the junction anterior 1/3 and posterior 2/3, and Hohmann retractors were placed on either side of the femoral neck at the fracture. An anterior sleeve of tissue was then released off of the trochanter, leaving a cuff of tissue for repair. This was taken to a point just distal to vastus tubercle. A small triangular portion of the capsule was removed and the hip joint was then encountered. A clean-up neck cut was made on the proximal femur and then a corkscrew was used to remove the femoral head fragment from the wound. We then trialed the acetabulum, and I felt that a 47 fit quite nicely and then prepared the femur beginning with the box osteotome. This was broached sequentially up to a 4 which seemed to fit quite nicely and a calcar planer was used to smooth the top of the femur. Next, a [place] basic size 4 stem was cemented into position. Care was taken to ensure the appropriate version. All excess cement was removed. When this was completed, we then did trials and trialed with the -3 47 monopolar head. Unfortunately, as the hip was reduced, there was a nondisplaced fracture which occurred at the greater trochanter. We elected to use the -3 x 47 monopolar head. This was impacted into position. The hip was reduced and then copiously irrigated. I elected to repair the greater trochanter fracture with gnyzye-gx-ycuai sutures with #5 FiberWire as well as #5 Ethibond which yielded excellent fracture reduction and repair of this nondisplaced fracture with intact periosteum. The sutures were placed transosseous. The capsule was repaired with #5 Ethibond. The gluteus medius was repaired with #5 Ethibond as well as #1 Surgilon. The vastus lateralis was repaired with #1 Surgilon. The iliotibial band was repaired with #1 Surgilon and 0-Vicryl. The subcu was closed with 2-0 Vicryl. The skin was closed with a running subcuticular 3-0 V Lock suture. A mixture of Marcaine and Naropin was added as an adjunct local anesthetic. Sterile dressings were applied. Patient tolerated the procedure well. Blood loss was 100 cc. COMPLICATIONS: Nondisplaced greater trochanter fracture. POSTOPERATIVE PROTOCOL: Will have the patient remain 50% partial weightbearing on the right lower extremity and avoid any active abduction for six weeks postoperatively. Recommend Lovenox for DVT prophylaxis as she does seem to be at relatively increased risk given her pulmonary hypertension and relative debility. Recommend Lovenox for a period of three weeks.
--- NOTE | 2017-03-15 21:18 | PCM.ANEP1 ---
Post Anesthesia PACU Phase 1 Assessment Vital Signs Vital Signs Date Time Temp Pulse Resp B/P Pulse Ox O2 Delivery O2 Flow Rate FiO2 03/15/17 20:44 102 18 137/92 98 Nasal Cannula 5 03/15/17 20:37 113 18 124/98 94 Nasal Cannula 3 03/15/17 20:30 112 22 142/79 96 Nasal Cannula 5 03/15/17 20:20 100 22 142/78 95 Nasal Cannula 3 03/15/17 20:13 105 21 153/83 95 Nasal Cannula 5 03/15/17 20:06 37.1 101 17 136/90 91 Nasal Cannula 3 03/15/17 16:40 Supplement Oxygen Anesthetic Administered: GA Level of Alertness: Awake, talking YEAGER's with Equal Strength: Yes (except for distribution of epidural) Pain: No Pain Scale Score: 2 Nausea or Vomiting: No CV Function & Hydration Stable: No Airway Device: Oxygen Delivery: Room Air Lungs: Diminished, Coarse Dermatome Level: T10 (Umbilicus) PACU Phase 2 Assessment Complications: No Follow up Care: N/A Patient Instructions Provided: N/A Adonay Mendieta MD March 15, 2017 21:18
--- NOTE | 2017-03-15 21:56 | NUR ---
At 21:15 Pt. arrived from surgery, asked for her upper dentures back on her mouth, put back her Telemetry box, gave her ice water cause she is really thirsty and got her Vitals. Her daughter and son in law were at bedside, gave daughter beddings for the night. After fixing her SCDs, checked on her wren catheter bag, its only 200ml so i decided not to empty yet. At 21:50 They decided to put lights off and ready to sleep.
[2017-03-15] MEDS: Sodium Chloride LOK Flush 10 mL Syringe IV SCH (22:06)
--- NOTE | 2017-03-15 23:16 | NUR ---
post op pt arrived back on O[facility] room 1007 from surgery at 2114. she is alert and oriented to self only. denied pain upon arrival and stated she was unable to feel or move her R leg. after a couple of hours on the floor pt has started to regain sensation in her R leg and can wiggle her toes. feet warm with good cap refill. pedal pulses weak bilaterally but palpable. pt has now complained of "medium" amount of pain and has been given 1mg IV morphine with good effect. she has tolerated water but denied wanting to try any food, PO medications withheld at this time, as pt is very sleepy. SCDs on and wedge in place. discussed with daughter plan to do 2Hr position changes this shift. daughter at bedside. care continues.
[2017-03-16] MEDS: HYDROcodone-APAP 5-325 mg Tablet PO PRN ×5 (01:32→18:28)
[2017-03-16 01:44] VITALS: BP 171/91; PULSE 101; RESP 16; O2SAT 96
[2017-03-16 01:55] LABS: BASOPHILS % (AUTO) 0.4 % (0-3); EOSINOPHILS % (AUTO) 1.4 % (0-5); MONOCYTES % (AUTO) 14.3 % (4-12); Mean Corpuscular Hemoglobin 30.6 pg (27.0-35.0); Mean Corpuscular Volume 94.5 fL (81-100); NEUTROPHILS % (AUTO) 71.7 % (40-74); Platelet Count 265 bil/L (150-400)
[2017-03-16 02:35] LABS: TROPONIN T 0.01 ug/L (0.0-0.011)
[2017-03-16] MEDS: Piperacillin-Tazo 3.375 Gm Inj 3.375 GM in Dextrose 5% Minibag Plus 50 ML IV SCH ×3 (04:14→17:58)
--- NOTE | 2017-03-16 06:05 | NUR ---
activity pt has received q2 turns from back to right side and heels elevated. pt IV was SL this AM as nurse heard crackles in the bases of pt lungs. pt has been taking in adequate amount of oral fluids. pt has been encouraged to cough and deep breathe and she has demonstrated for nurse. she has not wanted to try any food but denies N/V and has tolerated water this shift. pain was not adequately controlled with just IV morphine but once nurse started alternating the morphine with 1 PO [place] pt pain became much more tolerable and she has been sleeping.
[2017-03-16 06:24] VITALS: BP 131/91; PULSE 105; RESP 18; O2SAT 94
--- NOTE | 2017-03-16 07:10 | NUR ---
We were able to do Q2 turns on pt. at 12:15am, 01:45am, 04:10am and 6:10am, Q4 Vitals and emptied her wren cath. right after and the output was 1,150ml. Her daughter helps with repositioning when pt. is still uncomfortable after turning and with sipping of water. Addendum: 03/16/17 at 0715 by ISRAEL FLORES CNA Amended: Links added.
[2017-03-16] MEDS: Pantoprazole 40 mg ER24 Tablet PO SCH (07:48)
[2017-03-16] MEDS: Sodium Chloride LOK Flush 10 mL Syringe IV SCH ×2 (08:30→16:30)
[2017-03-16 09:11] VITALS: BP 136/75; PULSE 102; RESP 20; O2SAT 95
[2017-03-16] MEDS: Senna-Docusate 8.6-50 mg Tablet PO SCH ×2 (09:36→20:50)
[2017-03-16] MEDS: Calcium Carbonate (Oyster Shell) 500 mg Tablet PO SCH ×3 (09:36→20:49)
[2017-03-16] MEDS: Famotidine Inj 20 MG in IV Premix 1 EACH IV SCH ×2 (09:38→22:35)
--- NOTE | 2017-03-16 09:40 | PCM.PNORTH ---
Subjective Date of Service: March 16, 2017 Visit Information: Reason for Visit Right Hip Fracture/Pna Surgery/Surgery Date Post-Op Day # 1 Date of Admission: March 14, 2017 at 12:33 Hospital Day # Subjective Patient states she feels "very well." She has not been up with physical therapy and she has not tried moving her leg, but she denies pain. Postop General: No Complaints, No Chest Pain Pain Management: PO Objective Exam Objective Sitting up in bed Vital Signs and I/O Vital Sign - Last Date Time Temp Pulse Resp B/P Pulse Ox O2 Delivery O2 Flow Rate FiO2 03/16/17 09:11 36.6 102 20 136/75 95 Nasal Cannula 4.00 Intake and Output 03/15/17 03/15/17 03/16/17 Cumulative From/Thru 15:00 23:00 07:00 03/14/17 12:35 - 03/16/17 06:25 Intake Total 2266 ml 3966 ml Output Total 4700 ml 6800 ml Balance -2434 ml -2834 ml Intake Oral 0 ml 500 ml IV Total 2266 ml 3466 ml Output Urine Total 4600 ml 6700 ml Estimated Blood Loss 100 ml 100 ml # Bowel Movements 0 Lab & Micro Results Laboratory Tests Test 03/15/17 13:45 03/15/17 14:14 03/16/17 01:10 White Blood Count 12.6th/mm3 (3.8-10.1) 15.0th/mm3 (3.8-10.1) Red Blood Count 3.89mil/mm3 (3.90-5.20) 3.99mil/mm3 (3.90-5.20) Hemoglobin 12.1g/dL (12.0-15.6) 12.2g/dL (12.0-15.6) Hematocrit 36.1% (35.0-46.0) 37.7% (35.0-46.0) Mean Corpuscular Volume 92.8fL (81-100) 94.5fL (81-100) Mean Corpuscular Hemoglobin 31.1pg (27.0-35.0) 30.6pg (27.0-35.0) Mean Corpuscular Hemoglobin Concent 33.5% (32.0-37.0) 32.4% (32.0-37.0) Red Cell Distribution Width 13.4% (12.3-15.4) 13.2% (12.3-15.4) Platelet Count 248bil/L (150-400) 265bil/L (150-400) Neutrophils (%) (Auto) 69.2% (40-74) 71.7% (40-74) Lymphocytes (%) (Auto) 16.2% (14-46) 11.7% (14-46) Monocytes (%) (Auto) 11.2% (4-12) 14.3% (4-12) Eosinophils (%) (Auto) 1.9% (0-5) 1.4% (0-5) Basophils (%) (Auto) 0.6% (0-3) 0.4% (0-3) Sodium Level 139mEq/L (134-144) 137mEq/L (134-144) Potassium Level 4.4mEq/L (3.5-5.2) 3.9mEq/L (3.5-5.2) Chloride Level 101mEq/L (97-108) 95mEq/L (97-108) Carbon Dioxide Level 23mmol/L (18-29) 24mmol/L (18-29) Blood Urea Nitrogen 9mg/dL (8-27) 9mg/dL (8-27) Creatinine 0.55mg/dL (0.57-1.00) 0.57mg/dL (0.57-1.00) Estimat Glomerular Filtration Rate 152mL/min (>59) 146mL/min (>59) Glucose Level 102mg/dL (60-99) 105mg/dL (60-99) Calcium Level 9.2mg/dL (8.5-10.1) 8.9mg/dL (8.5-10.1) Urine Color Straw (YELLOW) Urine Appearance Clear (CLEAR,HAZY) Urine pH 7.5 (5.0-8.0) Urine Specific [place] 1.010 (1.003-1.035) Urine Protein Negativemg/dL (NEG,TRACE) Urine Glucose (UA) Negativemg/dL (NEGATIVE) Urine Ketones 15mg/dL (NEGATIVE) Urine Occult Blood Negative (NEGATIVE) Urine Nitrite Negative (NEGATIVE) Urine Bilirubin Negative (NEGATIVE) Urine Urobilinogen Normalmg/dL (NORMAL) Urine Leukocyte Esterase Trace (NEGATIVE) Urine RBC 0-2/hpf (0-2) Urine WBC 6-10/hpf (0-5) Urine Epithelial Cells Few/hpf (NONE-MOD) Urine Crystals None seen (NONE SEEN) Urine Bacteria Few/hpf (NONE-FEW) Urine Hyaline Casts None/lpf (NONE) Urine Granular Casts None seen (NONE SEEN) Urine Waxy Casts None seen (NONE SEEN) Urine Red Blood Cell Casts None seen (NONE SEEN) Urine White Blood Cell Casts None seen (NONE SEEN) Urine Mucus None seen (None Seen) Urine Trichomonas None seen (NONE SEEN) Urine Yeast None (NONE SEEN) Urinalysis Comment None Urine Culture Reflexed Indicated Troponin T 0.010ug/L (0.0-0.011) Pro-B-Type Natriuretic Peptide 9259pg/mL (0-738) Microbiology 03/15/17 Urine Culture, Received Pending Result Diagram: 03/16/17 0110 03/16/17 0110 General Appearance: Alert, Oriented X3, Cooperative, No Acute Distress Extremities: Distal Pulses Palpable, No Compartment Syndrom Noted, Tenderness/ Swelling Noted Postop Sensory Motor: Distal Motor Intact, Movement in Toes, Distal Sensation Intact, NVI Distally SURGICAL WOUND : Wound Location/Description Perioperative dressings clean, dry and intact Activity: Ambulate with PT (50% WB with a FWW) Assessment & Plan Impression POD#1 left hip hemiarthroplasty Problems: Plan Weightbearin% weightbearing on left leg with a front wheeled walker DVT prophylaxis: Recommending Lovenox for 3 weeks as she is at increased risk for pulmonary embolism Physical therapy for transfers, progressive ambulation, strengthening. AVOID active abduction for 6 weeks. Wound care: Perioperative dressing will be changed to an island dressing tomorrow Analgesia: Prefer nonnarcotic pain management to avoid narcotic related complications. Acetaminophen IV with other adjuncts for breakthrough. Discharge plan: Discharge SNF vs home in 1-2 days. Follow-up plan: In 2 weeks at [facility] with GIUSEPPE for wound check and at [address] Ayala with x-rays. Resuscitation Status: DNR/DNI:Do Not Resuscitate/Intubate Silvina Andre PA-C March 16, 2017 09:40
[2017-03-16] MEDS: Acetaminophen IV 1,000 MG in IV Premix 1 EACH IV SCH ×3 (09:50→21:50)
--- NOTE | 2017-03-16 10:03 | DRSVH ---
PROCEDURE: X-RAY CHEST ONE VIEW, PORTABLE ([id number]) INDICATIONS: hypoxemia TECHNIQUE: One view of the chest was acquired. COMPARISON: Outside Film, CT, CT ANGIO CHEST, 03/13/2017, 21:05. Outside Film, CR, XR CHEST 1VW, 02/22, 13:46. [facility], CR, XR CHEST 1VW (PORTABLE), 03/14/2017, 12:58. [facility], CT, CT ANGIO CHEST PE, 03/14/2017, 18:06. FINDINGS: Surgical changes and devices: Right axillary surgical clips. Prior kyphoplasty within the mid thorac ic spine redemonstrated. Lungs and pleura: Chronic interstitial opacities redemonstrated as well as retrocardiac airspace opac ity which has not significantly changed from prior examination. No pneumothorax. Mediastinum: Mediastinal contours appear normal. Heart size is normal. Bones and chest wall: No suspicious bony lesions. Overlying soft tissues appear unremarkable. IMPRESSION: 1. Chronic interstitial opacities redemonstrated as well as airspace opacity within the left lung bas e suggestive of superimposed pneumonia which is not significantly changed. Continued radiographic lauren veillance to resolution is recommended. Dictated by: Martínez WOOTEN Interpreted: Any Hampton MD on 03/16/2017 at 9:59 Transcribed by: SUPRIYA on 03/16/2017 at 10:03 Approved by: Any Hampton MD, PhD on 03/16/2017 at 11:43
[2017-03-16] MEDS: Polyethylene Glycol (PEG) 17 Gm Powder PO SCH (10:28)
--- NOTE | 2017-03-16 10:44 | NUR ---
SNF choice list provided. RUPESH Pereira
--- NOTE | 2017-03-16 10:46 | NUR ---
Saeid De Paz shift coordinator from [facility] [phone] has called and accepted patient with Demetria to follow and would like to come see patient when appropriate. Updated JUNK REMOVAL SPECIALIST
[2017-03-16 10:55] VITALS: PULSE 107
--- NOTE | 2017-03-16 11:35 | PCM.PNMED ---
Subjective Date of Service March 16, 2017 Subjective Hip is still sore but feeling much better postop day 1. She remembers me. She feels like her breathing is okay, no cough no chest pain no dyspnea no nausea or vomiting Exam Vital Signs Vital Sign - Last Date Time Temp Pulse Resp B/P Pulse Ox O2 Delivery O2 Flow Rate FiO2 03/16/17 10:55 107 03/16/17 09:11 36.6 20 136/75 95 Nasal Cannula 4.00 Intake and Output 03/15/17 03/15/17 03/16/17 Cumulative From/Thru 15:00 23:00 07:00 03/14/17 12:35 - 03/16/17 06:25 Intake Total 2266 ml 3966 ml Output Total 4700 ml 6800 ml Balance -2434 ml -2834 ml Intake Oral 0 ml 500 ml IV Total 2266 ml 3466 ml Output Urine Total 4600 ml 6700 ml Estimated Blood Loss 100 ml 100 ml # Bowel Movements 0 Exam Gen.- A+ O 2-3, no apparent distress. Seems much clearer today than in days prior. Eyes- open conjunctiva clear, pupils equal nonicteric ENT- ears normal, nose normal Neck- supple/trach midline CVS- RRR no murmur or gallop Lungs- CTA, perhaps some crackles towards the bases really minimal GI- NABS/NT soft Musc- moving 4 no obvious deformity Neuro- cranial nerves II through XII intact to gross examination, nonfocal Skin- warm and dry, no rashes/lesions/wounds noted Psych-pleasantly and appropriate Lab and Diagnostics Result Diagram: 03/16/17 01103/16/17 011 X-Rays, CTs and MRIs CTA chest IMPRESSION: 1. No significant change compared to 03.13.17 at 2100 hrs. 2. No pulmonary embolus. 3. Superior vena cava duplication. 4. Multifocal pneumonia with small left greater than right pleural effusions are unchanged. 5. 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 Dictated by: Brady Gómez M.D. on 03/14/2017 at 18:[address] of the chest rule out PE that is negative, hip and CXRs I have no results of these, the patient was sent with a CD so hopefully these are online with at least reads or films have been uploaded to the PACs system. These were reviewed with the radiologist, it was felt that PE could not be ruled definitively out based on the study that was obtained from [facility]. Therefore the study was repeated here. . 12-lead ECG EKG sinus tachycardia rate 108, QTC 453 ms abnormal R wave progression Q waves in inferior leads being read as old inferior infarct. No acute ST segment depressions or elevations personally reviewed by myself from 03/13/17 evaluated on admission. An additional EKG is pending. Cardiac Echo Impressions Echocardiogram EF 7075 percent, Right ventricular function is "severely impaired" right atria size normal, left atrium normal, thickening of mitral valve leaflets no mitral stenosis, tricuspid valve appears normal, pulmonic valve is normal trace pulmonic regurg, pericardial effusion, no evidence of mural thrombus, no pleural effusion, RVSP 51 mm Hg 03/14 Assessment & Plan 81-year-old female admitted 03/14 after coming to [facility] 03/12 with right hip fracture. 03/[address] scan shows multifocal pneumonia no PE patient's oxygen needs are down to 3 L my understanding is planned to go to the OR at 2:00 today I see no indication not to. 03/16 patient clinically appears better postop day #1 we will see how she mobilizes and if we can wean O2. I am discontinuing IV fluids as her BNP is extremely elevated. Holding off on giving diuretics. Troponin normalized. Leukocytosis-follow likely secondary to postop as well as pneumonia. Acute respiratory fail 2' multifocal pneumonia no PE/COPD/tobacco abuse. Likely aspiration event patient was vomiting and has large hiatal hernia 03/13 late which is the likely etiology of her sudden decline. -Received Zosyn/Levaquin 03/13 at [facility], I have pared down to Zosyn/Zithromax - - bronchodilators and incentive spirometry R hip fx- PTH wnl 03/14, supplementing vitamin D and calcium, consult orthopedics Dr. Dago Ayala, orif 03/15 Acute metabolic encephalopathy/dementia-patient has been receiving Dilaudid, Ativan, and has been hypoxemic she sounds like she got better since this morning we will need to watch Hx HTN/?? CAD-echo does not suggest anything EKG shows evidence of inferior infarct could be lead placement nothing acute happening. Patient has been on srinivas in the past were holding for now and using when necessary hydralazine Hx GERD-PPI while she is in the hospital she has been on pantoprazole Hx insomnia-trazodone is what she uses at home we will continue this avoids zolpidem as it "makes her crazy" Prophylaxis: DVT, SCDs and anticoagulation per orthopedics, GI PPI while she is here Dispositions: Patient comes from assisted living on [facility] probably wants to return there even to SNF, she is DO NOT RESUSCITATE but understands it is suspended for surgery. VTE Mechanical Devices: Intermittant Pneumatic CD Resuscitation Status: DNR/DNI:Do Not Resuscitate/Intubate Milton Weaver MD March 16, 2017 11:34
--- NOTE | 2017-03-16 15:05 | NUR ---
Pt. not available when attempted. Will see pt. tomorrow with high priority. Tim Saldaña, OTR/L
[2017-03-16 16:37] VITALS: BP 141/81; PULSE 101; RESP 18; O2SAT 88
--- NOTE | 2017-03-16 19:19 | NUR ---
Pain/activity/wren Pt pain tolerable this shift with PO Vicodin q 4hours hours. Pt up to chair with PT, was able to sit in chair for about 3 hours this afternoon. Wren removed at 1535 has not voided yet, tried at 1835, report given to caustic cresylate shift superintendent RN, will continue to monitor, pt states she is comfortable.
[2017-03-16 19:30] VITALS: BP 122/78; PULSE 100; RESP 20; O2SAT 92
[2017-03-17] VITALS (8 sets, daily range): BP systolic 117–136; BP diastolic 73–81; PULSE 36–98; RESP 16–20; O2SAT 93–98
[2017-03-17] MEDS: HYDROcodone-APAP 5-325 mg Tablet PO PRN ×4 (00:03→17:37)
[2017-03-17] MEDS: Sodium Chloride LOK Flush 10 mL Syringe IV SCH ×3 (00:30→16:30)
[2017-03-17] MEDS: Piperacillin-Tazo 3.375 Gm Inj 3.375 GM in Dextrose 5% Minibag Plus 50 ML IV SCH ×3 (02:03→17:36)
[2017-03-17] MEDS: Acetaminophen IV 1,000 MG in IV Premix 1 EACH IV SCH ×2 (03:50→09:50)
--- NOTE | 2017-03-17 05:29 | NUR ---
urinary retention/pain at 2330 nurse had pt attempt to urinate as it had been 8 hrs since wren had been removed. pt was only able to urinate 50cc. she was bladder scanned and it showed she had 340cc in her bladder. pt was not having any discomfort so a wren catheter was not placed at that time. at 0330 nurse again attempted to have pt urinate. this time pts urine was mixed with stool so it was not able to be measured but it appeared to be 50cc or less. pt was again bladder scanned which showed greater then 450 in her bladder. a 2way wren was placed with some difficulty. 425cc of urine was drained and the 2 way wren was left in at that time. nurse also discussed with pt using IV Tylenol over the [place] but pt stated 1 [place] every 4 hours has worked very well for pain control and that's what she wanted to continue. therefore [place] has been administered this shift and has effectively controlled pts pain, she has been resting with eyes closed, appearing comfortable for most of the shift.
--- NOTE | 2017-03-17 05:37 | NUR ---
activity pt got up to the BSC twice this shift and both times was a two person max assist with gait belt. pt was only able to stand and pivot, with nurse and auto service mechanic doing most of the lifting. pt does have upper body strength to push herself to edge of the bed but cannot move her left leg.
[2017-03-17] MEDS: Pantoprazole 40 mg ER24 Tablet PO SCH (07:45)
[2017-03-17] MEDS: Senna-Docusate 8.6-50 mg Tablet PO SCH ×2 (07:47→20:30)
[2017-03-17] MEDS: Polyethylene Glycol (PEG) 17 Gm Powder PO SCH (07:48)
[2017-03-17] MEDS: Famotidine Inj 20 MG in IV Premix 1 EACH IV SCH ×3 (07:49→22:02)
[2017-03-17] MEDS: Calcium Carbonate (Oyster Shell) 500 mg Tablet PO SCH ×3 (09:26→22:01)
--- NOTE | 2017-03-17 10:26 | PCM.PNMED ---
Subjective Date of Service March 17, 2017 Subjective Patient sleeping. No new complaints of chest pain, dyspnea, nausea or vomiting. Staff reports that she is just little confused. Exam Vital Signs Vital Sign - Last Date Time Temp Pulse Resp B/P Pulse Ox O2 Delivery O2 Flow Rate FiO2 03/17/17 09:05 Supplement Oxygen 03/17/17 07:52 36.8 93 20 121/78 93 3.00 Intake and Output 03/16/17 03/16/17 03/17/17 Cumulative From/Thru 15:00 23:00 07:00 03/14/17 12:35 - 03/17/17 06:01 Intake Total 1400 ml 550 ml 400 ml 6316 ml Output Total 1150 ml 275 ml 475 ml 8700 ml Balance 250 ml 275 ml -75 ml -2384 ml Intake Oral 1400 ml 550 ml 400 ml 2850 ml IV Total 3466 ml Output Urine Total 1150 ml 275 ml 475 ml 8600 ml Estimated Blood Loss 100 ml # Bowel Movements 0 1 1 Exam Gen.-Sleeping ,no apparent distress. Eyes-closed, no drainage ENT- ears normal, nose normal Neck- supple/trach midline CVS-normal rate Lungs-normal rate and rhythm no accessory muscle usage GI-flat Musc- moving 4 no obvious deformity Neuro- cranial nerves II through XII intact to gross examination, nonfocal Skin- warm and dry, no rashes/lesions/wounds noted Psych- sleeping Lab and Diagnostics Result Diagram: 03/16/17 0110 03/16/17 0110 X-Rays, CTs and MRIs CTA chest IMPRESSION: 1. No significant change compared to ..17 at 2100 hrs. 2. No pulmonary embolus. 3. Superior vena cava duplication. 4. Multifocal pneumonia with small left greater than right pleural effusions are unchanged. 5. 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 Dictated by: Brady Gómez M.D. on 03/14/2017 at 18:[address] of the chest rule out PE that is negative, hip and CXRs I have no results of these, the patient was sent with a CD so hopefully these are online with at least reads or films have been uploaded to the PACs system. These were reviewed with the radiologist, it was felt that PE could not be ruled definitively out based on the study that was obtained from [facility]. Therefore the study was repeated here. . 12-lead ECG EKG sinus tachycardia rate 108, QTC 453 ms abnormal R wave progression Q waves in inferior leads being read as old inferior infarct. No acute ST segment depressions or elevations personally reviewed by myself from 03/13/17 evaluated on admission. An additional EKG is pending. Cardiac Echo Impressions Echocardiogram EF 7075 percent, Right ventricular function is "severely impaired" right atria size normal, left atrium normal, thickening of mitral valve leaflets no mitral stenosis, tricuspid valve appears normal, pulmonic valve is normal trace pulmonic regurg, pericardial effusion, no evidence of mural thrombus, no pleural effusion, RVSP 51 mm Hg 03/14 Assessment & Plan 81-year-old female admitted 03/14 after coming to [facility] 03/12 with right hip fracture. 03/[address] scan shows multifocal pneumonia no PE patient's oxygen needs are down to 3 L my understanding is planned to go to the OR at 2:00 today I see no indication not to. 03/16 patient clinically appears better postop day #1 we will see how she mobilizes and if we can wean O2. I am discontinuing IV fluids as her BNP is extremely elevated. Holding off on giving diuretics. Troponin normalized. 03/17 patient clinically stable continue treating pneumonia, increasing mobility and doing discharge planning. Checking labs in a.m.. Possible DC to SNF 03/18 Leukocytosis-follow likely secondary to postop as well as pneumonia. Acute respiratory fail 2' multifocal pneumonia no PE/COPD/tobacco abuse. Likely aspiration event patient was vomiting and has large hiatal hernia 03/13 late which is the likely etiology of her sudden decline. -Received Zosyn/Levaquin 03/13 at [facility], I have pared down to Zosyn/Zithromax - - bronchodilators and incentive spirometry R hip fx- PTH wnl 03/14, supplementing vitamin D and calcium, consult orthopedics Dr. Dago Ayala, orif 03/15 Acute metabolic encephalopathy/dementia-patient has been receiving Dilaudid, Ativan, and has been hypoxemic she sounds like she got better since this morning we will need to watch Hx HTN/?? CAD-echo does not suggest anything EKG shows evidence of inferior infarct could be lead placement nothing acute happening. Patient has been on srinivas in the past were holding for now and using when necessary hydralazine Hx GERD-PPI while she is in the hospital she has been on pantoprazole Hx insomnia-trazodone is what she uses at home we will continue this avoids zolpidem as it "makes her crazy" Prophylaxis: DVT, SCDs and anticoagulation per orthopedics, GI PPI while she is here Dispositions: Patient comes from assisted living on [facility] probably wants to return there even to SNF, she is DO NOT RESUSCITATE but understands it is suspended for surgery. VTE Mechanical Devices: Intermittant Pneumatic CD Resuscitation Status: DNR/DNI:Do Not Resuscitate/Intubate Milton Weaver MD March 17, 2017 10:26
--- NOTE | 2017-03-17 11:51 | NUR ---
NUTRITION ASSESSMENT: ASSESS: Pt is an 81yo F admitted for rt hip fracture and pneumonia. She is POD 2. Pts PO intake is fair on heart healthy diet at ~ 50% of meals. Pt has been on and off NPO status due to surgery. PMHX: hypothyroidism, HTN, GERD LABS: Reviewed. Cl 95, Glu 105, Alb 2.8 MEDS: Reviewed. Senna, Colace, Bacid, Vit D, Miralax GI: BMx1 03/17 SKIN: [place] 13 CURRENT WTS: 61.2kg, BMI 22.8kg/m2, admit wt 62.2kg DIET: Heart Healthy, PO 50% EST. NEEDS: Kcals: 1530-1840kcal/day (25-30kcal/kg) Pro: 60-75g/day (1.0-1.2g/kg) NUTRITION DIAGNOSIS: 1.) Inadequate oral intake related to decreased ability to consume sufficient energy as evidenced by pt being on and off NPO for surgery and PO intake ~50% of meals NUTRITION INTERVENTION: 1.) Will add Ensure on L and D trays to help encourage PO intake MONITOR / EVAL: PO, wt, GI, labs, POC, nutrition status. Will continue to monitor per moderate nutrition risk guidelines
--- NOTE | 2017-03-17 12:16 | NUR ---
Social Work- Readiness for Discharge Data: EMR reviewed. Pt is on day 3 of hospitalization for right hip fracture per H&P. Pt is not medically stable for discharge, anticipate 1-2 more days. Pt has been accepted at [facility] with MD Augustin to follow. PT continues to recommend SNF. T/C to Saeid, admissions at [facility], regarding pt's on site visit. Saeid reports that Ruth Ann from [facility] completed this yesterday. T/C from pt's daughter Familia Braden [phone] regarding pt's discharge plan. SEJAL provided update regarding anticipated discharge to SNF. Familia agreeable to this. Pt to discharge to [facility] with MD Augustin to follow when medically cleared. All updated and agreeable to plan. SW will continue to follow. Assessment: Pt for whom SNF is medically indicated. Plan: Pt to discharge to [facility] with MD Augustin to follow when medically cleared. All updated and agreeable to plan. SW will continue to follow. RUPESH Nunez
--- NOTE | 2017-03-17 12:22 | PCM.PNORTH ---
Subjective Date of Service: March 17, 2017 Visit Information: Reason for Visit Right Hip Fracture/Pna Surgery/Surgery Date Post-Op Day # Date of Admission: March 14, 2017 at 12:33 Hospital Day # Subjective Status post day #2 left hip hemiarthroplasty. Patient states she is feeling pretty well. States her pain is well controlled. She has not been able to walk very far at all on the hip today. Feels like she will need a little help, very willing to work with therapy today. Postop General: No Complaints, No Chest Pain Pain Management: PO Objective Exam Objective Patient is alert and oriented 3. Answering questions appropriately. Patient is sitting up in the bedside chair eating breakfast and not in acute distress today. Dressing is clean dry and intact. Calf is soft and nontender. Sensation and pulses intact, patient able to wiggle toes. Upon dressing change there is no erythema, no discharge from the wound, dry healing well. Vital Signs and I/O Vital Sign - Last Date Time Temp Pulse Resp B/P Pulse Ox O2 Delivery O2 Flow Rate FiO2 03/17/17 09:05 Supplement Oxygen 03/17/17 07:52 36.8 93 20 121/78 93 3.00 Intake and Output 03/16/17 03/16/17 03/17/17 Cumulative From/Thru 14:59 22:59 06:59 03/14/17 12:35 - 03/17/17 06:01 Intake Total 1400 ml 550 ml 400 ml 6316 ml Output Total 1150 ml 275 ml 475 ml 8700 ml Balance 250 ml 275 ml -75 ml -2384 ml Intake Oral 1400 ml 550 ml 400 ml 2850 ml IV Total 3466 ml Output Urine Total 1150 ml 275 ml 475 ml 8600 ml Estimated Blood Loss 100 ml # Bowel Movements 0 1 1 Lab & Micro Results Microbiology 03/15/17 Urine Culture - Final, Complete No growth (<1,000 organisms/mL) Result Diagram: 03/16/17 0110 03/16/17 0110 Activity: Ambulate with PT (50% WB with a FWW) Assessment & Plan Impression Status post day #2 left hip hemiarthroplasty. Patient doing well. Blood counts are stable. Problems: Plan Weightbearin% weightbearing on left leg with a front wheeled walker DVT prophylaxis: Recommending Lovenox for 3 weeks as she is at increased risk for pulmonary embolism , this will be followed by aspirin 325 milligram tablets by mouth twice a day for 3 more weeks. Physical therapy for transfers, progressive ambulation, strengthening. AVOID active abduction for 6 weeks. Dressing change performed today. Analgesia: Prefer nonnarcotic pain management to avoid narcotic related complications. Acetaminophen IV with other adjuncts for breakthrough. Discharge plan: Current recommendation will be to SNF tomorrow. Follow-up plan: In 2 weeks at [facility] with GIUSEPPE for wound check and at [address] Ayala with x-rays. Resuscitation Status: DNR/DNI:Do Not Resuscitate/Intubate Terence Velarde PA-C March 17, 2017 12:22
--- NOTE | 2017-03-17 18:04 | NUR ---
POST-OP PROGRESS Hydrocodone/APAP 1 tab PO has been effective for pain control. Tolerating liquids PO and her diet well. Denies nausea. No emesis noted. O2 continues to be at 3 LPM via NC. Denies SOB. Patient was able to get OOB X 3 this shift and has sat in the chair for her meals. Tolerated activity fairly. Dressing is CDI. SCD's are on. IFC intact and draining to boni colored UO. Turned and repositioned Q 2 hrs.
[2017-03-18] MEDS: Sodium Chloride LOK Flush 10 mL Syringe IV SCH ×2 (00:30→08:30)
[2017-03-18 00:33] VITALS: BP 131/68; PULSE 79; RESP 20; O2SAT 98
[2017-03-18] MEDS: Piperacillin-Tazo 3.375 Gm Inj 3.375 GM in Dextrose 5% Minibag Plus 50 ML IV SCH ×2 (01:07→10:02)
[2017-03-18 03:59] VITALS: PULSE 104
[2017-03-18] MEDS: HYDROcodone-APAP 5-325 mg Tablet PO PRN ×3 (04:38→13:41)
[2017-03-18 05:03] VITALS: BP 133/76; PULSE 104; RESP 18; O2SAT 95
[2017-03-18 05:56] VITALS: PULSE 110
[2017-03-18 05:59] LABS: BASOPHILS % (AUTO) 0.2 % (0-3); EOSINOPHILS % (AUTO) 2.7 % (0-5); MONOCYTES % (AUTO) 13.8 % (4-12); Mean Corpuscular Hemoglobin 30.8 pg (27.0-35.0); Mean Corpuscular Volume 91.2 fL (81-100); Platelet Count 318 bil/L (150-400)
--- NOTE | 2017-03-18 06:11 | NUR ---
Confusion This morning patient woke up slightly confused. After reorienting, she was able to acknowledge being confused. Patient sates needing to have BM but was unable to transfer patient to [facility], due to pain and not being able to assist with the transfer. 1 tab [place] PO was given for pain, and a bed juárez was used. Wedge was put back into place and heels were floated. Patient is currently sleeping and appears comfortable. Will continue to monitor.
--- NOTE | 2017-03-18 06:27 | PCM.PNORTH ---
Subjective Date of Service: March 18, 2017 Visit Information: Reason for Visit Right Hip Fracture/Pna Surgery/Surgery Date Post-Op Day # Date of Admission: March 14, 2017 at 12:33 Hospital Day # Subjective Found patient dosing this morning and easily awakened. Patient is able to follow commands and respond briefly to questions but does not seem to be fully aware. She is well positioned this morning and abduction wedge is in place. Bilateral SCDs are in place this morning. Attempted to discuss sign off and discharged with patient. Postop General: No Complaints, No Shortness of Breath, No Chest Pain Pain Management: PO Objective Exam Objective Awake and interactive Postoperative dressing clean dry and intact Calf and thigh are soft and nontender Toe wiggle and sensation are intact in right lower extremity distally Bilateral SCDs are in place Hip abduction wedge is in place Daniels is in place and working No gait yet as of this time with physical therapy. Physical therapy recommendation is for discharge to senior care facility. Vital Signs and I/O Vital Sign - Last Date Time Temp Pulse Resp B/P Pulse Ox O2 Delivery O2 Flow Rate FiO2 03/18/17 05:56 110 03/18/17 05:03 36.8 18 133/76 95 Nasal Cannula 3.00 Intake and Output 03/17/17 03/17/17 03/18/17 Cumulative From/Thru 15:00 23:00 07:00 03/14/17 12:35 - 03/18/17 05:03 Intake Total 851 ml 7167 ml Output Total 700 ml 9400 ml Balance 151 ml -2233 ml Intake Oral 440 ml 3290 ml IV Total 411 ml 3877 ml Output Urine Total 700 ml 9300 ml Estimated Blood Loss 100 ml # Bowel Movements 1 2 Lab & Micro Results Laboratory Tests Test 03/18/17 05:05 White Blood Count 12.0th/mm3 (3.8-10.1) Red Blood Count 3.28mil/mm3 (3.90-5.20) Hemoglobin 10.1g/dL (12.0-15.6) Hematocrit 29.9% (35.0-46.0) Mean Corpuscular Volume 91.2fL (81-100) Mean Corpuscular Hemoglobin 30.8pg (27.0-35.0) Mean Corpuscular Hemoglobin Concent 33.8% (32.0-37.0) Red Cell Distribution Width 13.8% (12.3-15.4) Platelet Count 318bil/L (150-400) Neutrophils (%) (Auto) 63.0% (40-74) Lymphocytes (%) (Auto) 19.6% (14-46) Monocytes (%) (Auto) 13.8% (4-12) Eosinophils (%) (Auto) 2.7% (0-5) Basophils (%) (Auto) 0.2% (0-3) Sodium Level 135mEq/L (134-144) Potassium Level 3.5mEq/L (3.5-5.2) Chloride Level 97mEq/L (97-108) Carbon Dioxide Level 28mmol/L (18-29) Blood Urea Nitrogen 12mg/dL (8-27) Creatinine 0.63mg/dL (0.57-1.00) Estimat Glomerular Filtration Rate 130mL/min (>59) Glucose Level 114mg/dL (60-99) Calcium Level 8.4mg/dL (8.5-10.1) Microbiology 03/15/17 Urine Culture - Final, Complete No growth (<1,000 organisms/mL) Result Diagram: 03/18/17 0505 03/18/17 0505 General Appearance: Cooperative, No Acute Distress Extremities: No Compartment Syndrom Noted, Thigh & Calf Soft/Nontender Postop Sensory Motor: Distal Motor Intact, Movement in Toes, Distal Sensation Intact Activity: Activity per PT, Ambulate with PT (50% WB at right lower extremity with a FWW) Catheters: Urethral 2 Way Daniels Assessment & Plan Impression Patient is postop day #3 from right hip hemiarthroplasty with greater trochanter fracture repair performed on 03/15/[address] Adonay Ayala. She has been unable to participate well with physical therapy and has achieved no meaningful gait yet as of this time. Arrangements have been made for patient to discharge to senior care facility at [facility]. Problems: Plan Postoperative day #3 from right hip hemiarthroplasty with greater trochanter fracture repair followed on 03/15/[address] Adonay Ayala. 50% weightbearing only at the right lower extremity using front wheeled walker 6 weeks postop. No active abduction 6 weeks postop. Continue formal physical therapy for mobility, gait and safety. Continue IV Tylenol and/or by mouth pain medication as needed. Avoid narcotic pain medication. Continue Lovenox 40 mg subcutaneous daily 3 weeks postop with transition to ASA 325 mg EC by mouth twice a day times another 3 weeks postop totaling 6 weeks postoperative DVT prophylaxis. Nursing pleased measure and fit bilateral thigh-high COLETTE hose as ordered today prior to discharge. Follow-up in 2 weeks at [facility] orthopedic clinic with mid-level provider for wound check and suture removal. Follow-up in 6 weeks at [facility] orthopedic clinic with Dr. Adonay Ayala with AP pelvis and right crosstable lateral hip x-rays on arrival. Orthopedics [facility] service for their help with the medical management of this patient. At this time orthopedics will sign off on this patient but as always we will remain available for consultation or treatment as needed. Anticipate discharge to senior care facility by hospitalist service when patient is medically stable to do so. VTE Prophylaxis: Sub-Q Enoxaparin (Lovenox 40 mg subcutaneous daily 3 weeks postop with transition to ASA 325 mg EC by mouth twice a day for an additional 3 weeks totaling 6 weeks postoperative DVT prophylaxis.), SCDs (bilateral SCDs) , COLETTE Hose (bilateral thigh-high COLETTE hose) Resuscitation Status: DNR/DNI:Do Not Resuscitate/Intubate Garrick Aguillon PA-C March 18, 2017 06:27
[2017-03-18 07:56] VITALS: PULSE 86
[2017-03-18] MEDS: Senna-Docusate 8.6-50 mg Tablet PO SCH (08:30)
[2017-03-18] MEDS: Polyethylene Glycol (PEG) 17 Gm Powder PO SCH (08:30)
[2017-03-18] MEDS: Pantoprazole 40 mg ER24 Tablet PO SCH (08:43)
[2017-03-18] MEDS: Famotidine Inj 20 MG in IV Premix 1 EACH IV SCH (08:43)
[2017-03-18] MEDS: Calcium Carbonate (Oyster Shell) 500 mg Tablet PO SCH (08:44)
[2017-03-18 09:20] VITALS: BP 147/87; PULSE 98; RESP 20; O2SAT 97
--- NOTE | 2017-03-18 10:55 | PCM.DIMED ---
Discharge Instructions Date of Service March 18, 2017 Dates of Hospitalization March 14, 2017 at 12:33 Discharge Diagnosis Discharge Diagnosis Fall, hip fracture, multifocal pneumonia acute respiratory failure Diet Discharge Diet: No restrictions, Other Activity Discharge Activity: Other (weight-bearing as tolerated) Patient Instructions Patient Instructions PT/OT at SNF along with respiratory therapy for nebulizer and oxygen wean off follow-up CXR to confirm resolution. Follow-up plan As above at [facility] before returning to [facility]. Follow-up with PCP in: Other (unknown PCP if she does not have when she needs one.) Provider: Adonay Ayala DO Follow-up in: Other (Follow-up in 2 weeks at [facility] orthopedic clinic with mid-level provider for wound check and suture removal. Follow-up in 6 weeks at [facility] orthopedic clinic with Dr. Adonay Ayala with AP pelvis and right crosstable lateral hip x-rays on arrival.) Milton Weaver MD March 18, 2017 10:55
[2017-03-18] MEDS ORDERED: HYDR-4003 PO (11:02)
[2017-03-18] MEDS ORDERED: Lactobacillus Acidophilus PO (11:02)
[2017-03-18] MEDS ORDERED: POLY17PO6 PO (11:02)
[2017-03-18] MEDS ORDERED: Senna/Docusate Sodium PO (11:02)
[2017-03-18] MEDS ORDERED: AMOX-366 PO (11:02)
[2017-03-18] MEDS ORDERED: CHOL100043 PO (11:02)
[2017-03-18] MEDS ORDERED: MAGN800O PO (11:02)
[2017-03-18] MEDS ORDERED: DOCU-41 PO (11:02)
[2017-03-18] MEDS ORDERED: ZIT250 PO (11:02)
[2017-03-18] MEDS ORDERED: Calcium Carbonate PO (11:02)
[2017-03-18] MEDS ORDERED: ENOX40DI8 SUBQ (11:02)
--- NOTE | 2017-03-18 12:54 | NUR ---
Social Work note - Discharge MD identifies that pt is medically stable for d/c to SNF for rehab. Saeid at [facility] identifies that their facility can accept today. Transport by [facility] set up for 1500. QUALITY REP discussed with MD and RN. Paperwork faxed, chart copied. QUALITY REP asked MD to call Dr Augustin for doc to doc - provided phone number. QUALITY REP spoke with pt's daughter Familia with update that pt has been accepted and is medically stable to transfer to [facility] at 3:00 - She states she will go to SNF after work tonight. No other needs identified. Plan: D/C to [facility] SNF (A) Demetria by [place]. AGGIE Cast
--- NOTE | 2017-03-18 13:33 | PCM.DC.MED ---
Discharge Summary Date of Service March 18, 2017 Dates of Hospitalization Date of Hospital Admission March 14, 2017 at 12:33 Date of Discharge: March 18, 2017 Providers: Admitting Physician: Oliver White Primary Care Physician: Mervat Attending Physician: Oliver White Diagnosis at Time of Discharge Diagnosis at Time of Discharge Fall, hip fracture, multifocal pneumonia acute respiratory failure Consultations otho, Picco Procedures XRay, CTs & MRIs CTA chest IMPRESSION: 1. No significant change compared to 03.13.17 at 2100 hrs. 2. No pulmonary embolus. 3. Superior vena cava duplication. 4. Multifocal pneumonia with small left greater than right pleural effusions are unchanged. 5. 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 Dictated by: Brady Gómez M.D. on 03/14/2017 at 18:[address] of the chest rule out PE that is negative, hip and CXRs I have no results of these, the patient was sent with a CD so hopefully these are online with at least reads or films have been uploaded to the PACs system. These were reviewed with the radiologist, it was felt that PE could not be ruled definitively out based on the study that was obtained from [facility]. Therefore the study was repeated here. . ECG 12 Lead EKG sinus tachycardia rate 108, QTC 453 ms abnormal R wave progression Q waves in inferior leads being read as old inferior infarct. No acute ST segment depressions or elevations personally reviewed by myself from 03/13/17 evaluated on admission. An additional EKG is pending. Cardiac Echo Impression Echocardiogram EF 7075 percent, Right ventricular function is "severely impaired" right atria size normal, left atrium normal, thickening of mitral valve leaflets no mitral stenosis, tricuspid valve appears normal, pulmonic valve is normal trace pulmonic regurg, pericardial effusion, no evidence of mural thrombus, no pleural effusion, RVSP 51 mm Hg 03/14 Invasive Procedures DATE OF SURGERY: 03/15/2017 PREOPERATIVE DIAGNOSIS(ES): Right femoral neck fracture. POSTOPERATIVE DIAGNOSIS(ES): Right femoral neck fracture. PROCEDURE: Right hip hemiarthroplasty with greater trochanter repair of greater trochanter fracture. SURGEON: Adonay Ayala D.O. RECEIVING LEAD: Silvina Andre PA-C. INDICATIONS: The patient is an 81-year-old female who fell at her long-term facility on [facility] on Tuesday. Surgery was delayed and then the patient had a hypoxic event and was ultimately transferred to [facility] for further evaluation and treatment. She had a CT scan to rule out PE and was found to have a pneumonia. She was started on IV antibiotics and her respiratory condition has improved today to the point were we felt it was relatively safe to proceed the surgery. We discussed the risks, benefits, and possible complications with the patient and her family. All questions were answered and they wished to proceed. A assistant professor surgical technology was required for the successful completion of this procedure. Brief History Spunky 81-year-old woman who moved from [place] 2 months ago. Animated, has falls not irregularly she stumbles quite regularly and is supposed to be using using a walker but does not use it very often. There were no extra symptoms when she felt was a simple stumble and fall abdomen severe hip pain on the right and found to have a right femoral hip fracture. She was originally going to have surgery 03/12 in the evening then there was a delay because of antibodies in her blood. Then the plan was to have surgery 03/14 this morning but overnight she decompensated and became acutely hypoxemic and had altered level of consciousness at which point in time further workup was obtained and the decision not to operate this morning was made and to send her to a larger hospital with better resources in the event that her condition further deteriorated. Hospital Course 81-year-old female admitted 03/14 after coming to [facility] 03/12 with right hip fracture. 03/[address] scan shows multifocal pneumonia no PE patient's oxygen needs are down to 3 L my understanding is planned to go to the OR at 2:00 today I see no indication not to. 03/16 patient clinically appears better postop day #1 we will see how she mobilizes and if we can wean O2. I am discontinuing IV fluids as her BNP is extremely elevated. Holding off on giving diuretics. Troponin normalized. 03/17 patient clinically stable continue treating pneumonia, increasing mobility and doing discharge planning. Checking labs in a.m.. Possible DC to SNF 03/18 03/18 patient being discharged she is lucid, coherent her O2 is down to 3 L. And transferring to the [facility] in [place] Leukocytosis-follow likely secondary to postop as well as pneumonia. Improved Acute respiratory fail 2' multifocal pneumonia no PE/COPD/tobacco abuse. Likely aspiration event patient was vomiting and has large hiatal hernia 03/13 late which is the likely etiology of her sudden decline. -Received Zosyn/Levaquin 03/13 at [facility], I have pared down to Zosyn/Zithromax -03/18, finishing course 3 more days Zithromax, 5 more days Augmentin - bronchodilators and incentive spirometry R hip fx- PTH wnl 03/14, supplementing vitamin D and calcium, consult orthopedics Dr. Dago Ayala, orif 03/15 Acute metabolic encephalopathy/dementia-patient has been receiving Dilaudid, Ativan, and has been hypoxemic she sounds like she got better since this morning we will need to watch Hx HTN/?? CAD-echo does not suggest anything EKG shows evidence of inferior infarct could be lead placement nothing acute happening. Patient has been on srinivas in the past were holding for now and using when necessary hydralazine -SBP 136-147 over the last 24 hours Hx GERD-PPI while she is in the hospital she has been on pantoprazole Hx insomnia-trazodone is what she uses at home we will continue this avoids zolpidem as it "makes her crazy" Prophylaxis: DVT, SCDs and anticoagulation per orthopedics, GI PPI while she is here Dispositions: Patient comes from assisted living on [facility] probably wants to return there even to SNF, she is DO NOT RESUSCITATE but understands it is suspended for surgery. Exam Vital Signs (Last) Date Time Temp Pulse Resp B/P Pulse Ox O2 Delivery O2 Flow Rate FiO2 03/18/17 10:13 Supplement Oxygen 03/18/17 09:20 36.8 98 20 147/87 97 3.00 Exam Gen.- A+ O 2-3, no apparent distress. Seems much clearer today than in days prior. Eyes- open conjunctiva clear, pupils equal nonicteric ENT- ears normal, nose normal Neck- supple/trach midline CVS- RRR no murmur or gallop Lungs- CTA, perhaps some crackles towards the bases really minimal GI- NABS/NT soft Musc- moving 4 no obvious deformity Neuro- cranial nerves II through XII intact to gross examination, nonfocal Skin- warm and dry, no rashes/lesions/wounds noted Psych-pleasantly and appropriate Test 03/14/17 13:15 03/14/17 15:00 03/15/17 14:14 03/16/17 01:10 Prothrombin Time 11.4sec (8.1-12.5) Prothromb Time International Ratio 1.06ratio Activated Partial Thromboplast Time 28.7sec (22.8-33.0) Total Bilirubin 0.5mg/dL (0.0-1.2) Aspartate Amino Transf (AST/SGOT) 17U/L (0-50) Alanine Aminotransferase (ALT/SGPT) 12U/L (0-32) Alkaline Phosphatase 54U/L (25-165) Total Protein 5.2g/dL (6.4-8.4) Albumin 2.8g/dL (3.4-5.0) Parathyroid Hormone (Intact) 59pg/mL (15-65) Urine Color Straw (YELLOW) Urine Appearance Clear (CLEAR,HAZY) Urine pH 7.5 (5.0-8.0) Urine Specific [place] 1.010 (1.003-1.035) Urine Protein Negativemg/dL (NEG,TRACE) Urine Glucose (UA) Negativemg/dL (NEGATIVE) Urine Ketones 15mg/dL (NEGATIVE) Urine Occult Blood Negative (NEGATIVE) Urine Nitrite Negative (NEGATIVE) Urine Bilirubin Negative (NEGATIVE) Urine Urobilinogen Normalmg/dL (NORMAL) Urine Leukocyte Esterase Trace (NEGATIVE) Urine RBC 0-2/hpf (0-2) Urine WBC 6-10/hpf (0-5) Urine Epithelial Cells Few/hpf (NONE-MOD) Urine Crystals None seen (NONE SEEN) Urine Bacteria Few/hpf (NONE-FEW) Urine Hyaline Casts None/lpf (NONE) Urine Granular Casts None seen (NONE SEEN) Urine Waxy Casts None seen (NONE SEEN) Urine Red Blood Cell Casts None seen (NONE SEEN) Urine White Blood Cell Casts None seen (NONE SEEN) Urine Mucus None seen (None Seen) Urine Trichomonas None seen (NONE SEEN) Urine Yeast None (NONE SEEN) Urinalysis Comment None Urine Culture Reflexed Indicated Troponin T 0.010ug/L (0.0-0.011) Pro-B-Type Natriuretic Peptide 9259pg/mL (0-738) Test 03/18/17 05:05 White Blood Count 12.0th/mm3 (3.8-10.1) Red Blood Count 3.28mil/mm3 (3.90-5.20) Hemoglobin 10.1g/dL (12.0-15.6) Hematocrit 29.9% (35.0-46.0) Mean Corpuscular Volume 91.2fL (81-100) Mean Corpuscular Hemoglobin 30.8pg (27.0-35.0) Mean Corpuscular Hemoglobin Concent 33.8% (32.0-37.0) Red Cell Distribution Width 13.8% (12.3-15.4) Platelet Count 318bil/L (150-400) Neutrophils (%) (Auto) 63.0% (40-74) Lymphocytes (%) (Auto) 19.6% (14-46) Monocytes (%) (Auto) 13.8% (4-12) Eosinophils (%) (Auto) 2.7% (0-5) Basophils (%) (Auto) 0.2% (0-3) Sodium Level 135mEq/L (134-144) Potassium Level 3.5mEq/L (3.5-5.2) Chloride Level 97mEq/L (97-108) Carbon Dioxide Level 28mmol/L (18-29) Blood Urea Nitrogen 12mg/dL (8-27) Creatinine 0.63mg/dL (0.57-1.00) Estimat Glomerular Filtration Rate 130mL/min (>59) Glucose Level 114mg/dL (60-99) Calcium Level 8.4mg/dL (8.5-10.1) Discharge Medications Discharge Medications ([Calcium Carbonate]) 500 MG TABLET 500 MG PO TID Prescribed by: EUFEMIA WEAVER MD ([Lactobacillus Acidophilus]) 1 TABLET TABLET 2 TABLET PO PCHS Prescribed by: EUFEMIA WEAVER MD ([Senna/Docusate Sodium]) 1 TABLET TABLET 1 TABLET PO BID Prescribed by: EUFEMIA WEAVER MD Amoxicillin/Clav K 875-125 mg (Augmentin 875-125 mg) 1 Each Tablet 1 TABLET PO BID Prescribed by: EUFEMIA WEAVER MD Azithromycin (Zithromax) 250 Mg Tablet 500 MG PO DAILY Prescribed by: EUFEMIA WEAVER MD Cholecalciferol (Vitamin D3) (Vitamin D) 1,000 Unit Tablet 2,000 UNIT PO DAILY Prescribed by: EUFEMIA WEAVER MD Citalopram Hydrobromide (Celexa) 20 Mg Tablet 20 MG PO DAILY (Reported) Docusate Sodium (Colace) 100 Mg Capsule 100 MG PO BID Prescribed by: EUFEMIA WEAVER MD Enoxaparin Sodium (Enoxaparin Sodium) 40 Mg/0.4 Ml Syringe 40 MG SUBQ Q24 Prescribed by: EUFEMIA WEAVER MD Levothyroxine (Levothyroxine) 125 Mcg Tablet 125 MCG PO DAILY (Reported) Pantoprazole DR (Pantoprazole DR) 20 Mg Tablet.dr 20 MG PO DAILY (Reported) Polyethylene Glycol 3350 (Miralax) 17 Gm Powd.pack 17 GM PO DAILY Prescribed by: EUFEMIA WEAVER MD Trazodone (Trazodone) 50 Mg Tablet 50 MG PO HS (Reported) As needed Dextran 70/Hypromellose/Pf (Artificial Tears Drops) 1 Each Droperette 2 DROP BOTH_EYES q4 hours PRN PRN dry eyes (Reported) Hydrocodone-Acetaminophen 5-325 mg (Hydrocodone-Acetaminophen 5-325 mg) 1 Each Tablet 1-2 TABLET PO Q4H PRN PRN For Moderate Pain Prescribed by: EUFEMIA WEAVER MD Loratadine (Claritin) 10 Mg Capsule 10 MG PO DAILY PRN PRN allergies (Reported) Magnesium Hydroxide (Milk of Magnesia) 2,400 Mg/10 Ml Oral.susp 30 ML PO HS PRN PRN For Constipation Prescribed by: EUFEMIA WEAVER MD Followup Plan Disposition: Going to [facility] Follow-up plan As above at [facility] before returning to [facility]. Patient will need follow-up CXR 03/22 or 03/24, recommend follow-up CBC/complete metabolic note later than 03/22. Discharge Diet: No restrictions, Other Discharge Activity: Other (weight-bearing as tolerated) Patient Instructions PT/OT at [facility] along with respiratory therapy for nebulizer and oxygen wean off follow-up CXR to confirm resolution. Follow-up with PCP in: Other (unknown PCP if she does not have when she needs one.) Provider: Adonay Ayala DO Follow-up in: Other (Follow-up in 2 weeks at [facility] orthopedic clinic with mid-level provider for wound check and suture removal. Follow-up in 6 weeks at [facility] orthopedic clinic with Dr. Adonay Ayala with AP pelvis and right crosstable lateral hip x-rays on arrival.) Cardiac Rehab: 1 week Time spent >30min Attending Statement Patient had a very isaura start. She fell 03/12 at [facility] and went to [facility] in [place] her surgery was initially delayed because of antibodies in her blood. Then 03/13 before she was to be operated on she had nausea and vomiting and suddenly desaturated and developed multifocal pneumonia but happily no embolism. She was transferred to [facility] for further evaluation and treatment with specialty back up. Happily repeat CT scan only showed multifocal pneumonia we gave her vigorous pulmonary toilet and treated aspiration pneumonia and patient remained stable she has been slowly weaning off of oxygen this is not surprising given she has COPD from a long smoking history but has recovered nicely has been ambulatory become more lucid as narcotics were weaned and has done surprisingly well given the inauspicioous beginnings of her care. Patient will need follow-up CXR 03/22 or 03/24, recommend follow-up CBC/ complete metabolic note later than 03/22. Eufemia Weaver MD March 18, 2017 13:33
--- NOTE | 2017-03-18 16:59 | NUR ---
Discharge Pt discharged to [facility] at 1600; was picked up by their transportation service. Pt A&O to self and situation; IV dc'd intact; YEAGER - limited to RLE; Pain present but tolerable at rest; Tele dc'd; All personal belongings in hand at dc; Hard copy scripts placed in DC packet put together by CM. Report called to Makayla chu [facility] at ~1400 prior to pt discharge. Pt left unit to transport vehicle via w/c.
== END 2017-03-18 15:44 | DRG 469 ==
LOC: OSC 12:33
PROVIDERS: ADMIT Internal Medicine; ATTEND Hospitalist
PROC: 0QQ60ZZ Repair Right Upper Femur, Open Approach (ICD-10-PCS; 2017-03-15)
PROC: 0SRR0J9 Replacement of Right Hip Joint, Femoral Surface with Synthetic Substitute, Cemented, Open Approach (ICD-10-PCS; principal; 2017-03-15 15:00)
DX: S72.001A Fracture of unspecified part of neck of right femur, initial encounter for closed fracture (principal); J69.0 Pneumonitis due to inhalation of food and vomit; J96.01 Acute respiratory failure with hypoxia; G93.41 Metabolic encephalopathy; M96.89 Other intraoperative and postprocedural complications and disorders of the musculoskeletal system; K21.9 Gastro-esophageal reflux disease without esophagitis; G47.00 Insomnia, unspecified; E03.9 Hypothyroidism, unspecified; I10 Essential (primary) hypertension; W01.0XXA Fall on same level from slipping, tripping and stumbling without subsequent striking against object, initial encounter; Z91.81 History of falling; Z66 Do not resuscitate